=== PATIENT | female | born 1930 | race Hispanic/Latino ===

== ENCOUNTER 2018-01-19 02:08 | Inpatient (IN) | payer MEDICARE ==
[2018-01-19 02:23] VITALS: O2SAT 99
[2018-01-19] MEDS ORDERED: Magnesium Hydroxide Susp 30 ml UD PO PRN (04:05)
[2018-01-19] MEDS ORDERED: Alum-Mag Hydrox-Simethicone Susp (30 mL) PO PRN (04:05)
[2018-01-19] MEDS ORDERED: Bismuth Subsalicylate 262 mg/15 ml Sus (240 ml) PO PRN (04:05)
--- NOTE | 2018-01-19 04:52 | PCM.BM ---
<MyrnaZaireUriel - Last Filed: 01/19/18 04:50> Treatment Plan Problems - Problems identified on initial assessmt Agitated/Aggressive Behavior Date Initiated: 01/19/18 Time Initiated: 04:51 Assessment reference: NA Status: Active Ineffective Impulse Control Date Initiated: 01/19/18 Time Initiated: 04:53 Assessment reference: NA Status: Active Treatment assets and liabiliti Patient Assests: good support system Patient Liabilities: medical problems, imparied memory, language/speech - Milieu Protocol Maintain good personal hygiene: every shift Encourage regular showers, every shift Remind patient to perform daily oral care, every shift Assist patient to perform ADL's Conduct patient checks and document Observation sheet: 1:1 Maintain personal safety: every shift Educate patient to report safety concerns to staff, every shift Monitor environment for contraband/sharps Medication safety: Monitor for expected outcome, potential side effects: every shift, Assess barriers to learning: every shift, Assess readiness for medication education: every shift <Jessica Bond - Last Filed: 01/20/18 08:11> - Diagnosis (1) Dementia with behavioral disturbance Status: Acute Interventions: Medication management, Individual and group therapy, Psychoeducation 01/20/18 08:11 <Estella Juarez - Last Filed: 01/20/18 15:52> Treatment Plan Problems - Problems identified on initial assessmt Agitated/Aggressive Behavior Date Initiated: 01/19/18 Time Initiated: 04:51 Assessment reference: NA Status: Active Ineffective Impulse Control Date Initiated: 01/19/18 Time Initiated: 04:53 Assessment reference: NA Status: Active Problem 1 Date Initiated: 01/19/18 Time Initiated: 04:51 Family Contact Family involvement: Family/SO is involved Family contact: Other (Pt's Ana Rosa mobley is POA) Family contact name: Ana Rosa Bejarano ([phone]) Family contacted how many times per week?: 2 - Outside Agency [facility] involvment: Information-sharing Agency contact number: [phone] - Goals for Treatment Patient goals for treatment: Pt to be encouraged to attend activity and clinical groups 3-5x per week to identify at least 2 contributing factors to increased agitation, irritability, and aggression. Psycho-education to be provided to patient/family regarding benefits of medications and treatment adherence. Pt to be encouraged to participate in group milieu to develop effective coping skills to reduce aggression and reduce psychiatric hospitalizations. Coordinate discharge resource needs by providing referral for psychiatric treatment follow up in the community. Discharge/Continuing Care - Education Needs Education Needs: Family Medication, Family Diagnosis/Disease Process, Family Coping Skills, Family Placement options, Family Community resources, Family Health Practices/Safety, Family Personal Hygiene/Grooming, Family Aftercare Safety Plan - Discharge Discharge Criteria: Tolerates medication w/o severe side effects, Free of agitation, Normal sleep pattern, Ability to care for self, Reduction of target symptoms Discharge to:: Intermediate - Additional Comments 01/20/18 15:51 Pt unable to attend team meeting. Pt observed to be resting. Pt is presently on 1:1 due to safety. Reason for admission reviewed and discussed. Pt's medical and social issues reviewed. Pt's medications discussed. Tx mario reviewed and discussed. SW and attending MD to contact pt's family who is POA for collateral information. SW to continue to follow case. - Treatment Team Participation Discussed with Family/SO: No Was Patient/Family/SO present at Treatment Team Meeting: Yes
[2018-01-19 06:16] LABS: HEMOGLOBIN 13.2 g/dL (12.0-16.0); MEAN CELL VOLUME 88.8 fl (81.0-99.0); MEAN CORPUSCULAR HEMOGLOBIN 29.7 pg (27.0-31.0); MEAN CORPUSCULAR HGB CONC 33.5 g/dL (33.0-37.0); RBC 4.44 Mil/uL (3.80-5.20); RED CELL DISTRIBUTION WIDTH 15.1 % (11.5-14.5); WHITE BLOOD COUNT 12.6 K/uL (4.8-10.8)
[2018-01-19 06:20] LABS: ALB/GLOB RATIO 0.9 (1.0-2.1); ALBUMIN 4.1 g/dL (3.5-5.0); ALT/SGPT 21 U/L (9-52); AST/SGOT 29 U/L (14-36); BLOOD UREA NITROGEN 21 mg/dl (7-17); CALCIUM 10.1 mg/dL (8.4-10.2); GFR NON-AFRICAN AMERICAN > 60; HDL CHOLESTEROL 69 MG/DL (30-70); IRON 64 ug/dL (37-170)
[2018-01-19 06:29] LABS: % IRON SATURATION 22 % (20-55); TOTAL IRON BINDING CAPACITY 299 ug/dL (250-450)
[2018-01-19 06:31] LABS: LDL CHOLESTEROL 63 mg/dL (0-129)
[2018-01-19 06:36] LABS: T4 9.06 ug/dl (5.5-11.0)
[2018-01-19 06:54] LABS: FERRITIN 69.2 ng/Ml (11.1-264.0)
[2018-01-19] MEDS: POLYETHYLENE GLYCOL 3350 17 GM/Dose PACKET PO SCH (08:43)
[2018-01-19] MEDS: Cholecalciferol 1,000 INTLU TAB PO SCH (08:45)
[2018-01-19] MEDS ORDERED: Patient's Own Med (Cholecalciferol (Vitamin D3) [Vitamin D3] 1 TAB) PO SCH (09:00)
[2018-01-19] MEDS ORDERED: Influenza Vaccine 18yr & older 0.5 ML/45 MCG SYR (Inactive don't use) IM ONE (10:00)
[2018-01-19] MEDS ORDERED: Pneumococcal 23-Valent Vaccine IM ONE (10:00)
--- NOTE | 2018-01-19 13:08 | PCM.PSYCH ---
Initial Psychiatric Evaluation - Initial Psychiatric Evaluation Chief Complaint (in patient's own words): pt was transferred from [facility] due non availability of bed pt was transferred from [facility] 2nd to changes in behavior. Patient's Reaction to Hospitalization: pt has POA on chart daughter per records daughter verbally agreeable to play History of Present Illness and Precipitating Events: fci hx of dementia changes in behavior, Current Medications: Active Medications Generic Name Dose Route Start Last Admin Trade Name Freq PRN Reason Stop Dose Admin Acetaminophen 650 mg 01/19/18 04:05 Tylenol 325mg Tab PO Q4 PRN Pain, moderate (4-7) Al Hydrox/Mg Hydrox/Simethicone 30 ml 01/19/18 04:05 Maalox Plus 30 Ml PO Q4 PRN Dyspepsia Bismuth Subsalicylate 524 mg 01/19/18 04:05 Pepto-Bismol PO Q4 PRN Diarrhea Cholecalciferol 2,000 intlu 01/19/18 09:00 01/19/18 08:45 Vitamin D PO 2,000 intlu DAILY TELLY Administration Donepezil HCl 10 mg 01/19/18 22:00 Aricept PO HS TELLY Folic Acid 2 mg 01/19/18 09:00 01/19/18 08:43 Folic Acid PO 2 mg BID TELLY Administration Lisinopril 20 mg 01/19/18 09:00 01/19/18 08:45 Zestril PO 20 mg DAILY TELLY Administration Lorazepam 1 mg 01/19/18 04:04 Ativan IM Q6 PRN Agitation Lorazepam 0.5 mg 01/19/18 04:05 Ativan PO 02/02/18 04:06 HS PRN Insomnia Lorazepam 0.5 mg 01/19/18 04:05 Ativan PO 02/02/18 04:06 Q6 PRN Anixety/Agitation Magnesium Hydroxide 30 ml 01/19/18 04:05 Milk Of Magnesia PO HS PRN Constipation Polyethylene Glycol 17 gm 01/19/18 09:00 01/19/18 08:43 Miralax PO 17 gm DAILY TELLY Administration Past Psychiatric History - Past Psychiatric History Prior Professional Help: [facility], hx dementia, hx of swallowing coins Pertinent Medical Hx (Current Medical&Sleep Prob, Allergies): Allergies Allergy/AdvReac Type Severity Reaction Status Date / Time No Known Allergies Allergy Verified 01/19/18 02:23 Cholecalciferol (Vitamin D3) [Vitamin D3] 1 tab PO DAILY 01/19/18 Divalproex [Depakote DR] 1 tab PO HS 01/19/18 Donepezil [Aricept] 10 mg PO HS 01/19/18 Folic Acid [Folic Acid] 2 mg PO BID 01/19/18 Lisinopril [Zestril] 20 mg PO DAILY 01/19/18 Melatonin/Pyridoxine [Melatonin 5 mg Tablet] 5 mg PO HS 01/19/18 Polyethylene Glycol 3350 [Miralax] 17 g PO DAILY 01/19/18 Quetiapine Fumarate [Seroquel] 25 mg PO DAILY 01/19/18 Quetiapine Fumarate [Seroquel] 50 mg PO HS 01/19/18 Review of Systems - Psychiatric Additional comments: pt had received various prns in [place] for changes in behavior Mental Status Examination - Affect Affect: Constricted, Flat - Motor Activity Motor Activity: Psychomotor Retardation - Reliability in Providing Information Reliability in Providing Information: Poor, due to alteration in thoughts - Speech Additional comments: underproductive - Formal Thought Process Formal Thought Process: Circumstantial Additional comments: loud at times - Cognitive Functions Orientation: Person Sensorium: Drowsy Attention/Concentration: Easily distracted Judgement: Imparied, as evidence by: Other - Risk Risk: Falls, Diminished functioning - Strength & Assets Inventory Additional comments: pt has poa copy to chart DSM 5 DX - DSM 5 DSM 5 Diagnosis: dementia with behavioral disturbance hx of ingestion coins - Recommended/Plan of Treatment Treatment Recommendations and Plan of Treatment: inpt admission per attending vital signs and clinical observation per protocol and per clinical status prn use of antipsychotics should be judiciously used prn use of lower dose lorazepam previous medications can be resumed pt status (assess with hs seroquel possible sedation) obtain ekg check qtc in light of antipsychotics administered access to nepali speaking staff prn discharge planning in progress Projected ELOS: 7 days Prognosis: guarded Discharge Plan and Discharge Criteria: safety - Smoking Cessation Smoking Cessation Initiated: No Reason for not providing: indicated
[2018-01-19 16:11] LABS: FOLATE > 20.0 ng/mL
--- NOTE | 2018-01-19 19:44 | CP.PCM.CON ---
<Piter Andrew - Last Filed: 01/19/18 19:39> History of Present Illness - History of Present Illness History of Present Illness: HPI: 87 y/o woman w/ pmh of HTN and dementia is admitted for AMS. Patient is a [facility] resident. Patient is verbal but is an unreliable historian. Patient has no complaints. Patient denies headaches, dizziness, chest pain, SOB , or abdominal pain. Review of Systems - Review of Systems Systems not reviewed;Unavailable: Dementia - Constitutional Constitutional: absent: Fever, Headache - Cardiovascular Cardiovascular: absent: Chest Pain - Respiratory Respiratory: absent: Cough - Gastrointestinal Gastrointestinal: absent: Abdominal Pain Past Patient History - CARDIAC Hx Hypertension: Yes - NEUROLOGICAL Hx Alzheimer's Disease: Yes Hx Dementia: Yes - MUSCULOSKELETAL/RHEUMATOLOGICAL Hx Falls: Yes - GENITOURINARY/GYNECOLOGICAL Hx Cervical Cancer: Yes (history had radiation) - PSYCHIATRIC Hx Anxiety: Yes Hx Depression: Yes Hx Substance Use: No - SURGICAL HISTORY Other/Comment: abdominal surgery x2-jun and july 2017- pt swallowed 32 coins - ANESTHESIA Hx Anesthesia: Yes Hx Anesthesia Reactions: No Hx Malignant Hyperthermia: No Has any member of the family had a problem w/ anesthesia?: No Meds Allergies/Adverse Reactions: Allergies Allergy/AdvReac Type Severity Reaction Status Date / Time No Known Allergies Allergy Verified 01/19/18 02:23 - Medications Medications: Current Medications Acetaminophen (Tylenol 325mg Tab) 650 mg PO Q4 PRN PRN Reason: Pain, moderate (4-7) Al Hydrox/Mg Hydrox/Simethicone (Maalox Plus 30 Ml) 30 ml PO Q4 PRN PRN Reason: Dyspepsia Bismuth Subsalicylate (Pepto-Bismol) 524 mg PO Q4 PRN PRN Reason: Diarrhea Cholecalciferol (Vitamin D) 2,000 intlu PO DAILY [facility] Last Admin: 01/19/18 08:45 Dose: 2,000 intlu Donepezil HCl (Aricept) 10 mg PO HS TELLY Folic Acid (Folic Acid) 2 mg PO BID [facility] Last Admin: 01/19/18 17:20 Dose: 2 mg Lisinopril (Zestril) 20 mg PO DAILY [facility] Last Admin: 01/19/18 08:45 Dose: 20 mg Lorazepam (Ativan) 1 mg IM Q6 PRN PRN Reason: Agitation Lorazepam (Ativan) 0.5 mg PO HS PRN PRN Reason: Insomnia Stop: 02/02/18 04:06 Lorazepam (Ativan) 0.5 mg PO Q6 PRN PRN Reason: Anixety/Agitation Stop: 02/02/18 04:06 Magnesium Hydroxide (Milk Of Magnesia) 30 ml PO HS PRN PRN Reason: Constipation Polyethylene Glycol (Miralax) 17 gm PO DAILY TELLY Last Admin: 01/19/18 08:43 Dose: 17 gm Physical Exam - Constitutional Appears: Non-toxic, No Acute Distress - Head Exam Head Exam: ATRAUMATIC, NORMAL INSPECTION, NORMOCEPHALIC - Eye Exam Eye Exam: Normal appearance - ENT Exam ENT Exam: Mucous Membranes Moist - Neck Exam Neck exam: Positive for: Full Rom - Respiratory Exam Respiratory Exam: Clear to Auscultation Bilateral, NORMAL BREATHING PATTERN. absent: Decreased Breath Sounds, Rales, Rhonchi, Wheezes, Respiratory Distress - Cardiovascular Exam Cardiovascular Exam: REGULAR RHYTHM, RRR. absent: Tachycardia - GI/Abdominal Exam GI & Abdominal Exam: Normal Bowel Sounds, Soft. absent: Distended, Tenderness - Extremities Exam Extremities exam: Positive for: normal inspection - Neurological Exam Neurological exam: Alert - Skin Skin Exam: Dry, Normal Color, Warm Results - Vital Signs Recent Vital Signs: Last Vital Signs Temp 98.1 F 01/19/18 06:00 Pulse 100 H 01/19/18 08:45 Resp 20 01/19/18 06:00 BP 153/85 H 01/19/18 08:45 Pulse Ox 99 01/19/18 02:18 - Labs Result Diagrams: 01/19/18 05:45 01/19/18 05:45 Labs: Laboratory Results - last 24 hr 01/19/18 01/19/18 01/19/18 05:45 05:45 05:45 WBC 12.6 H RBC 4.44 Hgb 13.2 Hct 39.5 MCV 88.8 MCH 29.7 MCHC 33.5 RDW 15.1 H Plt Count 234 Sodium 137 Potassium 4.1 Chloride 97 L Carbon Dioxide 31 H Anion Gap 13 BUN 21 H Creatinine 0.8 Est GFR ( Amer) > 60 Est GFR (Non-Af Amer) > 60 Random Glucose 130 H Hemoglobin A1c Calcium 10.1 Iron TIBC % Saturation Ferritin 69.2 Total Bilirubin 0.6 AST 29 ALT 21 Alkaline Phosphatase 70 Total Protein 8.5 H Albumin 4.1 Globulin 4.3 H Albumin/Globulin Ratio 0.9 L Triglycerides 77 Cholesterol 170 LDL Cholesterol Direct 63 HDL Cholesterol 69 Vitamin B12 497 Folate > 20.0 Free T4 1.24 Thyroxine (T4) 9.06 TSH 3rd Generation 2.02 RPR 01/19/18 01/19/18 01/19/18 05:45 05:45 05:45 WBC RBC Hgb Hct MCV MCH MCHC RDW Plt Count Sodium Potassium Chloride Carbon Dioxide Anion Gap BUN Creatinine Est GFR ( Amer) Est GFR (Non-Af Amer) Random Glucose Hemoglobin A1c 5.8 Calcium Iron 64 TIBC 299 % Saturation 22 Ferritin Total Bilirubin AST ALT Alkaline Phosphatase Total Protein Albumin Globulin Albumin/Globulin Ratio Triglycerides Cholesterol LDL Cholesterol Direct HDL Cholesterol Vitamin B12 Folate Free T4 Thyroxine (T4) TSH 3rd Generation RPR Nonreactive Assessment & Plan (1) Altered mental status Status: Acute (2) HTN (hypertension) Status: Chronic (3) Dementia Status: Chronic - Assessment and Plan (Free Text) Assessment: 87 y/o woman w/ pmh of HTN and dementia is admitted for AMS Plan: AMS - vital signs stable - from [facility] - management as per psychiatry team Dementia - c/w aricept 10 mg PO HS HTN - c/w lisinopril 20 mg PO daily <Naomi Powell - Last Filed: 01/24/18 08:38> Meds - Medications Medications: Current Medications Acetaminophen (Tylenol 325mg Tab) 650 mg PO Q4 PRN PRN Reason: Pain, moderate (4-7) Al Hydrox/Mg Hydrox/Simethicone (Maalox Plus 30 Ml) 30 ml PO Q4 PRN PRN Reason: Dyspepsia Bismuth Subsalicylate (Pepto-Bismol) 524 mg PO Q4 PRN PRN Reason: Diarrhea Cholecalciferol (Vitamin D) 2,000 intlu PO DAILY TELLY Last Admin: 01/23/18 09:50 Dose: 2,000 intlu Divalproex Sodium (Depakote Sprinkles) 250 mg PO DAILY TELLY Divalproex Sodium (Depakote Sprinkles) 500 mg PO DAILY@1700 TELLY Donepezil HCl (Aricept) 10 mg PO HS TELLY Last Admin: 01/23/18 21:09 Dose: 10 mg Folic Acid (Folic Acid) 2 mg PO BID [facility] Last Admin: 01/23/18 17:36 Dose: 2 mg Lisinopril (Zestril) 20 mg PO DAILY [facility] Last Admin: 01/23/18 09:53 Dose: 20 mg Lorazepam (Ativan) 0.5 mg PO HS PRN PRN Reason: Insomnia Stop: 02/02/18 04:06 Lorazepam (Ativan) 0.5 mg PO Q6 PRN PRN Reason: Anixety/Agitation Stop: 02/02/18 04:06 Last Admin: 01/20/18 22:42 Dose: 0.5 mg Magnesium Hydroxide (Milk Of Magnesia) 30 ml PO HS PRN PRN Reason: Constipation Polyethylene Glycol (Miralax) 17 gm PO DAILY [facility] Last Admin: 01/23/18 09:36 Dose: Not Given Results - Vital Signs Recent Vital Signs: Last Vital Signs Temp 97.1 F L 01/24/18 05:49 Pulse 96 H 01/24/18 05:49 Resp 19 01/24/18 05:49 BP 136/76 01/24/18 05:49 Pulse Ox 99 01/19/18 02:18 - Labs Result Diagrams: 01/21/18 07:42 01/21/18 07:42 Attending/Attestation - Attestation I have personally seen and examined this patient.: Yes I have fully participated in the care of the patient.: Yes I have reviewed all pertinent clinical information: Yes Notes (Text): 01/24/18 08:38 Seen, examined, discussed with resident, agree with findings and plan as above.
[2018-01-20] MEDS: POLYETHYLENE GLYCOL 3350 17 GM/Dose PACKET PO SCH (08:46)
[2018-01-20] MEDS: Cholecalciferol 1,000 INTLU TAB PO SCH (08:47)
--- NOTE | 2018-01-20 09:10 | CARD ---
APPROVED REPORT Date of service: 01/20/2018 EKG Measurement Heart [id number] <Conclusion> Sinus tachycardia with premature supraventricular complexes Cannot rule out Inferior infarct, age undetermined Abnormal ECG
--- NOTE | 2018-01-20 12:03 | PCM.PYCHPN ---
Psychiatric Progress Note - Psychiatric Progress Note Patient seen today, length of contact: Pt evaluated, case discussed w/ team, chart reviewed Patient Chief Complaint: Behavioral disturbances Problems Identified/Issues Discussed: Patient continues to be confused and disorganized. She is not able to answer basic questions. She did not answer her name when asked. She has not been violent or aggressive, but has clear memory deficits w/ poor insight/judgment. Foot Gatherer spoke with patient's POA, daughter Ana Rosa Bejarano ([phone]) and her (who didn't identify his name, despite being asked, he just stated "I'm the son in law."). POA and her were irritated w/ lyric writer that I called and asked their opinion on how the patient is doing. They stated "why are you asking me these questions?" and "I already spoke to someone in the emergency room about my mother." When informed that the lyric writer is trying to collaborate care and learn their opinion because they know their mother, they stated "you shouldn't be asking me these questions, you are the doctor, she has only been there one day." Foot Gatherer again attempted to explain that lyric writer was calling to try to provide good patient care and that it is standard to involve the POA when the patient is unable make decisions for themselves. They were angry stating "how dare you ask me these questions." Foot Gatherer attempted to discuss the patient's medications with the POA/. They did not know which medications the patient was prescribed. Foot Gatherer informed them that as per the record, the patient has been taking Depakote 500 mg PO HS and Seroquel 25 mg PO Daily/50 mg PO HS. They said "I guess that's what she is taking if that's what it says." They also stated "Why are you asking us about medications, you are the doctor, you should know how to prescribe medications." Foot Gatherer asked POA/ , permission to modify the medications as medically and psychiatrically indicated and they agreed. Medication Change: Yes (Restart Depakote) Medical Record Reviewed: Yes Consults ordered or reviewed: Medicine consult Mental Status Examination - Cognitive Function Orientation: Person Memory: Impaired Attention: Poor Concentration: Poor Association: Loose Fund of Knowledge: Poor Decription of patient's judgement and insights: Poor I/J - Mood Mood: Neutral - Affect Affect: Blunted - Speech Speech: Loud - Formal Thought Process Formal Thought Process: Loosening of associations Psychotic Thoughts and Behaviors: No evidence of AH/VH - Suicidal Ideation Suicidal Ideation: No - Homicidal Ideation Homicidal Ideation: No Goal/Treatment Plan - Goal/Treatment Plan Need for Continued Stay: Remain at risks for inpatient hospitalization, Discharge may exacerbated symptoms, Severe functional impairment Progress Toward Problem(s) and Goals/Treatment Plan: Dementia with behavioral disturbances -Restart Depakote -Continue Aricept -Medicine consult -Case discussed w/ POA -Individual and group therapy -Disposition planning Estimated Date of D/C: 01/27/18
--- NOTE | 2018-01-20 16:09 | CT ---
Date of service: 01/20/2018 PROCEDURE: CT HEAD WITHOUT CONTRAST. HISTORY: New onset inability to walk COMPARISON: None. TECHNIQUE: Axial computed tomography images were obtained through the head/brain without intravenous contrast. Radiation dose: Total exam DLP = 782.87 mGy-cm. This CT exam was performed using one or more of the following dose reduction techniques: Automated exposure control, adjustment of the mA and/or kV according to patient size, and/or use of iterative reconstruction technique. FINDINGS: HEMORRHAGE: No intracranial hemorrhage. BRAIN: No mass effect or edema. Age related senescent changes. VENTRICLES: Unremarkable. No hydrocephalus. CALVARIUM: Unremarkable. PARANASAL SINUSES: Unremarkable as visualized. No significant inflammatory changes. MASTOID AIR CELLS: Unremarkable as visualized. No inflammatory changes. OTHER FINDINGS: Soft tissue mass within the scalp adjacent to the posterior right parietal bone. The mass contains elements of fat and other components of soft tissue density. A scalloped appearance to the adjacent posterior high right parietal bone is noted with extension to the dural surface without significant impression upon intracranial contents. IMPRESSION: No acute intracranial abnormalities. Scalp, soft tissue mass with invasion of adjacent high posterior parietal bone on the right. No intracranial component identified.
[2018-01-20] MEDS: Divalproex 125 mg Sprinkle Capsule PO SCH (16:19)
[2018-01-21 08:08] LABS: BASO % 0.3 % (0.0-2.0); EOS % 0.1 % (0.0-4.0); HEMOGLOBIN 13.4 g/dL (12.0-16.0); LYMPH # 3.4 K/uL (1.0-4.3); LYMPH % 26.6 % (20.0-40.0); MEAN CELL VOLUME 89.2 fl (81.0-99.0); MEAN CORPUSCULAR HEMOGLOBIN 29.5 pg (27.0-31.0); MEAN CORPUSCULAR HGB CONC 33.1 g/dL (33.0-37.0); MONO # 1.1 K/uL (0.0-0.8); MONO % 8.8 % (0.0-10.0); NEUT # 8.3 K/uL (1.8-7.0); NEUT % 64.2 % (50.0-75.0); NRBC % 0.1 % (0.0-0.0); RBC 4.55 Mil/uL (3.80-5.20); RED CELL DISTRIBUTION WIDTH 14.6 % (11.5-14.5); WHITE BLOOD COUNT 12.9 K/uL (4.8-10.8)
[2018-01-21 08:15] LABS: ALB/GLOB RATIO 0.9 (1.0-2.1); ALT/SGPT 32 U/L (9-52); AST/SGOT 61 U/L (14-36); BLOOD UREA NITROGEN 26 mg/dl (7-17); CALCIUM 10.2 mg/dL (8.4-10.2); GFR NON-AFRICAN AMERICAN 59
[2018-01-21] MEDS: POLYETHYLENE GLYCOL 3350 17 GM/Dose PACKET PO SCH (09:33)
[2018-01-21] MEDS: Divalproex 125 mg Sprinkle Capsule PO SCH ×3 (09:33→21:24)
[2018-01-21] MEDS: Cholecalciferol 1,000 INTLU TAB PO SCH (09:34)
--- NOTE | 2018-01-21 10:39 | PCM.PYCHPN ---
Psychiatric Progress Note - Psychiatric Progress Note Patient seen today, length of contact: Pt evaluated, case discussed w/ team, chart reviewed Patient Chief Complaint: Behavioral disturbances Problems Identified/Issues Discussed: Patient continues to have behavioral disturbances, episodes of yelling and agitation. She continues to be disorganized w/ poor memory and comprehension of basic commands. She requires 1:1 for safety. Poor insight/judgment due to chronic neurocognitive impairment. Medication Change: Yes (Increase Depakote) Medical Record Reviewed: Yes Consults ordered or reviewed: Medicine consult Mental Status Examination - Cognitive Function Orientation: Person Memory: Impaired Attention: Poor Concentration: Poor Association: Loose Fund of Knowledge: Poor Decription of patient's judgement and insights: Poor I/J - Mood Mood: Neutral - Affect Affect: Blunted - Speech Speech: Loud - Formal Thought Process Formal Thought Process: Loosening of associations Psychotic Thoughts and Behaviors: No evidence of AH/VH - Suicidal Ideation Suicidal Ideation: No - Homicidal Ideation Homicidal Ideation: No Goal/Treatment Plan - Goal/Treatment Plan Need for Continued Stay: Remain at risks for inpatient hospitalization, Discharge may exacerbated symptoms, Severe functional impairment Progress Toward Problem(s) and Goals/Treatment Plan: Dementia with behavioral disturbances -Increase Depakote -Continue Aricept -Medicine consult -Case discussed w/ POA -Individual and group therapy -Disposition planning Estimated Date of D/C: 01/27/18
[2018-01-21 15:01] LABS: SQUAMOUS EPITHIAL < 1 /hpf (0-5); URINE BILIRUBIN NEGATIVE (NEGATIVE); URINE BLOOD MODERATE (NEGATIVE); URINE CLARITY CLEAR (Clear); URINE COLOR YELLOW (YELLOW); URINE GLUCOSE (UA) NEG (Normal); URINE HYALINE CAST 0-2 /hpf (0-2); URINE LEUKOCYTE ESTERASE NEG Leu/uL (Negative); URINE PROTEIN NEGATIVE (NEGATIVE); URINE UROBILINOGEN 0.2-1.0 mg/dL (0.2-1.0)
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
[2018-01-22] MEDS: Divalproex 125 mg Sprinkle Capsule PO SCH ×3 (08:59→17:16)
[2018-01-22] MEDS: POLYETHYLENE GLYCOL 3350 17 GM/Dose PACKET PO SCH (09:00)
[2018-01-22] MEDS: Cholecalciferol 1,000 INTLU TAB PO SCH (09:01)
--- NOTE | 2018-01-22 10:40 | PCM.PYCHPN ---
Psychiatric Progress Note - Psychiatric Progress Note Patient seen today, length of contact: Pt evaluated, case discussed w/ team, chart reviewed Patient Chief Complaint: Behavioral disturbances Problems Identified/Issues Discussed: Patient continues to have behavioral disturbances, w/ episodes of yelling and agitation. She continues to be disorganized w/ poor memory and comprehension of basic commands. She requires 1:1 for safety. Poor insight/judgment due to chronic neurocognitive impairment. Medication Change: No Medical Record Reviewed: Yes Consults ordered or reviewed: Medicine consult, Neurology consult Mental Status Examination - Cognitive Function Orientation: Person Memory: Impaired Attention: Poor Concentration: Poor Association: Loose Fund of Knowledge: Poor Decription of patient's judgement and insights: Poor I/J - Mood Mood: Neutral - Affect Affect: Blunted - Speech Speech: Soft - Formal Thought Process Formal Thought Process: Loosening of associations Psychotic Thoughts and Behaviors: No evidence of AH/VH - Suicidal Ideation Suicidal Ideation: No - Homicidal Ideation Homicidal Ideation: No Goal/Treatment Plan - Goal/Treatment Plan Need for Continued Stay: Remain at risks for inpatient hospitalization, Discharge may exacerbated symptoms, Severe functional impairment Progress Toward Problem(s) and Goals/Treatment Plan: Dementia with behavioral disturbances -Continue Depakote, will f/u depakote level -Continue Aricept -Medicine consult -Case discussed w/ POA -Individual and group therapy -Disposition planning Estimated Date of D/C: 01/27/18
--- NOTE | 2018-01-23 08:14 | PCM.PYCHPN ---
Psychiatric Progress Note - Psychiatric Progress Note Patient seen today, length of contact: Pt evaluated, case discussed w/ team, chart reviewed Patient Chief Complaint: Behavioral disturbances Problems Identified/Issues Discussed: Patient is starting to become calmer, with less mood lability and less episodes of yelling. She continues to be disorganized w/ poor memory and comprehension of basic commands. She requires 1:1 for safety. Poor insight/judgment due to chronic neurocognitive impairment. Medication Change: No Medical Record Reviewed: Yes Consults ordered or reviewed: Medicine consult, Neurology consult Mental Status Examination - Cognitive Function Orientation: Person Memory: Impaired Attention: Poor Concentration: Poor Association: Loose Fund of Knowledge: Poor Decription of patient's judgement and insights: Poor I/J - Mood Mood: Neutral - Affect Affect: Blunted - Speech Speech: Soft - Formal Thought Process Formal Thought Process: Loosening of associations Psychotic Thoughts and Behaviors: No evidence of AH/VH - Suicidal Ideation Suicidal Ideation: No - Homicidal Ideation Homicidal Ideation: No Goal/Treatment Plan - Goal/Treatment Plan Need for Continued Stay: Remain at risks for inpatient hospitalization, Discharge may exacerbated symptoms, Severe functional impairment Progress Toward Problem(s) and Goals/Treatment Plan: Dementia with behavioral disturbances -Continue Depakote, will f/u depakote level -Continue Aricept -Medicine consult -Case discussed w/ POA -Individual and group therapy -Disposition planning Estimated Date of D/C: 01/27/18
[2018-01-23] MEDS: POLYETHYLENE GLYCOL 3350 17 GM/Dose PACKET PO SCH (09:36)
[2018-01-23] MEDS: Divalproex 125 mg Sprinkle Capsule PO SCH ×3 (09:49→17:36)
[2018-01-23] MEDS: Cholecalciferol 1,000 INTLU TAB PO SCH (09:50)
--- NOTE | 2018-01-23 16:07 | CT ---
Date of service: 01/23/2018 PROCEDURE: CT Thoracic Spine without contrast HISTORY: New onset inability to walk COMPARISON: None available. TECHNIQUE: Axial computed tomography images were obtained of the thoracic spine without intravenous contrast. Coronal and sagittal reformatted images were created and reviewed. Radiation dose: Total exam DLP = 1488.67 mGy-cm. This CT exam was performed using one or more of the following dose reduction techniques: Automated exposure control, adjustment of the mA and/or kV according to patient size, and/or use of iterative reconstruction technique. FINDINGS: VERTEBRAE: Unremarkable. No fracture. Normal alignment. Minimal dextroscoliotic curvature of the thoracic spine. DISCS/SPINAL CANAL/NEURAL FORAMINA: Within the limits of the CT technique, no disc herniation seen. No central canal or neural foraminal stenosis.. PARASPINAL SOFT TISSUES: Unremarkable. OTHER FINDINGS: Unremarkable. IMPRESSION: No fracture/dislocation. No evidence of spinal stenosis.
--- NOTE | 2018-01-23 16:19 | CT ---
Date of service: 01/23/2018 PROCEDURE: CT Lumbar Spine without contrast HISTORY: New onset inability to walk COMPARISON: None available. TECHNIQUE: Axial computed tomography images were obtained of the lumbar spine without the use of intravenous contrast. Coronal and sagittal reformatted images were created and reviewed. Radiation dose: Total exam DLP = 1488.67 mGy-cm. This CT exam was performed using one or more of the following dose reduction techniques: Automated exposure control, adjustment of the mA and/or kV according to patient size, and/or use of iterative reconstruction technique. FINDINGS: VERTEBRAE: Unremarkable. No fracture. Normal alignment. DISCS/SPINAL CANAL/NEURAL FORAMINA: L1-2: Unremarkable. L2-3: Unremarkable. L3-4: Unremarkable. L4-5: Calcified disc bulge. No focal herniation. Mild bilateral degenerative facet arthropathy. Moderate central spinal stenosis. Mild bilateral neural foraminal stenosis. L5-S1: Diffuse disc bulge. No focal herniation. Bilateral degenerative facet arthropathy. Moderate to severe central spinal stenosis. Moderate bilateral neural foraminal stenosis. PARASPINAL SOFT TISSUES: Unremarkable. OTHER FINDINGS: None. IMPRESSION: No fracture/dislocation. Moderate central spinal stenosis at L4-5 and moderate to severe central spinal stenosis L5-S1. Mild bilateral neural foraminal stenosis L4-5 and moderate bilateral neural foraminal stenosis L5-S1. No other significant abnormality.
--- NOTE | 2018-01-24 10:00 | PCM.PYCHPN ---
Psychiatric Progress Note - Psychiatric Progress Note Patient seen today, length of contact: Pt evaluated, case discussed w/ team, chart reviewed Patient Chief Complaint: Behavioral disturbances Problems Identified/Issues Discussed: Patient continues to have poor insight/judgment and inability to care for herself due to cognitive impairment. She has periods of mood lability and needs redirection, although she does not follow basic commands. She requires 1: 1 for safety. Medication Change: Yes (Change timing of Depakote ) Medical Record Reviewed: Yes Consults ordered or reviewed: Medicine consult, Neurology consult Mental Status Examination - Cognitive Function Orientation: Person Memory: Impaired Attention: Poor Concentration: Poor Association: Loose Fund of Knowledge: Poor Decription of patient's judgement and insights: Poor I/J - Mood Mood: Neutral - Affect Affect: Blunted - Speech Speech: Soft - Formal Thought Process Formal Thought Process: Loosening of associations Psychotic Thoughts and Behaviors: No evidence of AH/VH - Suicidal Ideation Suicidal Ideation: No - Homicidal Ideation Homicidal Ideation: No Goal/Treatment Plan - Goal/Treatment Plan Need for Continued Stay: Remain at risks for inpatient hospitalization, Discharge may exacerbated symptoms, Severe functional impairment Progress Toward Problem(s) and Goals/Treatment Plan: Dementia with behavioral disturbances -Continue Depakote, will f/u depakote level -Continue Aricept -Medicine consult -Case discussed w/ POA -Individual and group therapy -Disposition planning Estimated Date of D/C: 01/28/18
[2018-01-24] MEDS: Divalproex 125 mg Sprinkle Capsule PO SCH ×2 (10:21→17:02)
[2018-01-24] MEDS: Cholecalciferol 1,000 INTLU TAB PO SCH (10:22)
[2018-01-24] MEDS: POLYETHYLENE GLYCOL 3350 17 GM/Dose PACKET PO SCH (10:22)
[2018-01-25] MEDS: Divalproex 125 mg Sprinkle Capsule PO SCH ×2 (09:10→17:25)
[2018-01-25] MEDS: POLYETHYLENE GLYCOL 3350 17 GM/Dose PACKET PO SCH (09:12)
[2018-01-25] MEDS: Cholecalciferol 1,000 INTLU TAB PO SCH (09:13)
--- NOTE | 2018-01-25 09:54 | PCM.PYCHPN ---
Psychiatric Progress Note - Psychiatric Progress Note Patient seen today, length of contact: Pt evaluated, case discussed w/ team, chart reviewed Patient Chief Complaint: Behavioral disturbances Problems Identified/Issues Discussed: Patient continues to have poor insight/judgment and inability to care for herself due to cognitive impairment. She has periods of mood lability and needs redirection, although she does not follow basic commands. She requires 1: 1 for safety. Patient has poor appetite. Medication Change: No Medical Record Reviewed: Yes Consults ordered or reviewed: Medicine consult, Neurology consult Mental Status Examination - Cognitive Function Orientation: Person Memory: Impaired Attention: Poor Concentration: Poor Association: Loose Fund of Knowledge: Poor Decription of patient's judgement and insights: Poor I/J - Mood Mood: Neutral - Affect Affect: Blunted - Speech Speech: Soft - Formal Thought Process Formal Thought Process: Loosening of associations Psychotic Thoughts and Behaviors: No evidence of AH/VH - Suicidal Ideation Suicidal Ideation: No - Homicidal Ideation Homicidal Ideation: No Goal/Treatment Plan - Goal/Treatment Plan Need for Continued Stay: Remain at risks for inpatient hospitalization, Discharge may exacerbated symptoms, Severe functional impairment Progress Toward Problem(s) and Goals/Treatment Plan: Dementia with behavioral disturbances -Continue Depakote, will f/u depakote level -Continue Aricept -Start Megace -Medicine consult -Case discussed w/ POA -Individual and group therapy -Disposition planning Estimated Date of D/C: 01/28/18
[2018-01-26] MEDS: Divalproex 125 mg Sprinkle Capsule PO SCH ×2 (09:22→17:09)
[2018-01-26] MEDS: Cholecalciferol 1,000 INTLU TAB PO SCH (09:23)
[2018-01-26] MEDS: POLYETHYLENE GLYCOL 3350 17 GM/Dose PACKET PO SCH (09:24)
--- NOTE | 2018-01-26 10:28 | PCM.PYCHPN ---
Psychiatric Progress Note - Psychiatric Progress Note Patient seen today, length of contact: Pt evaluated, case discussed w/ team, chart reviewed Patient Chief Complaint: Behavioral disturbances Problems Identified/Issues Discussed: Patient continues to have periods of yelling, mood lability and has chronic inability to care for self due to her neurocognitive impairment. She requires 1:1 for safety. Patient has poor appetite. Medication Change: No Medical Record Reviewed: Yes Consults ordered or reviewed: Medicine consult, Neurology consult Mental Status Examination - Cognitive Function Orientation: Person Memory: Impaired Attention: Poor Concentration: Poor Association: Loose Fund of Knowledge: Poor Decription of patient's judgement and insights: Poor I/J - Mood Mood: Neutral - Affect Affect: Blunted - Speech Speech: Loud - Formal Thought Process Formal Thought Process: Loosening of associations Psychotic Thoughts and Behaviors: No evidence of AH/VH - Suicidal Ideation Suicidal Ideation: No - Homicidal Ideation Homicidal Ideation: No Goal/Treatment Plan - Goal/Treatment Plan Need for Continued Stay: Remain at risks for inpatient hospitalization, Discharge may exacerbated symptoms, Severe functional impairment Progress Toward Problem(s) and Goals/Treatment Plan: Dementia with behavioral disturbances -Continue Depakote, will f/u depakote level -Continue Aricept -Continue Megace -Medicine consult -Case discussed w/ POA -Individual and group therapy -Disposition planning Estimated Date of D/C: 01/29/18
[2018-01-26] MEDS: Risperidone M tab 0.5MG PO PRN ×2 (10:52→23:00)
[2018-01-27 06:39] LABS: BASO % 0.1 % (0.0-2.0); HEMOGLOBIN 12.7 g/dL (12.0-16.0); LYMPH % 14.3 % (20.0-40.0); MEAN CELL VOLUME 89.6 fl (81.0-99.0); MEAN CORPUSCULAR HEMOGLOBIN 30.1 pg (27.0-31.0); MEAN CORPUSCULAR HGB CONC 33.6 g/dL (33.0-37.0); MEAN PLATELET VOLUME 7.6 fl (7.2-11.7); MONO # 0.4 K/uL (0.0-0.8); MONO % 5.9 % (0.0-10.0); NEUT # 5.5 K/uL (1.8-7.0); NEUT % 79.7 % (50.0-75.0); RBC 4.23 Mil/uL (3.80-5.20); RED CELL DISTRIBUTION WIDTH 14.8 % (11.5-14.5); WHITE BLOOD COUNT 6.9 K/uL (4.8-10.8)
[2018-01-27 07:21] LABS: ALB/GLOB RATIO 0.9 (1.0-2.1); ALBUMIN 3.7 g/dL (3.5-5.0)
[2018-01-27] MEDS ORDERED: Valproic Acid 250 mg/5 ml UD Cup PO SCH (09:00)
--- NOTE | 2018-01-27 11:33 | PCM.PYCHPN ---
Psychiatric Progress Note - Psychiatric Progress Note Patient seen today, length of contact: Pt evaluated, case discussed w/ team, chart reviewed Patient Chief Complaint: Behavioral disturbances Problems Identified/Issues Discussed: Patient continues to have periods of yelling, mood lability and has chronic inability to care for self due to her neurocognitive impairment. She requires 1:1 for safety. Patient has poor appetite and poor PO intake. Medication Change: Yes (Change Depakote to liquid ) Medical Record Reviewed: Yes Consults ordered or reviewed: Medicine consult, Neurology consult Mental Status Examination - Cognitive Function Orientation: Person Memory: Impaired Attention: Poor Concentration: Poor Association: Loose Fund of Knowledge: Poor Decription of patient's judgement and insights: Poor I/J - Mood Mood: Neutral - Affect Affect: Blunted - Speech Speech: Loud - Formal Thought Process Formal Thought Process: Loosening of associations Psychotic Thoughts and Behaviors: No evidence of AH/VH - Suicidal Ideation Suicidal Ideation: No - Homicidal Ideation Homicidal Ideation: No Goal/Treatment Plan - Goal/Treatment Plan Need for Continued Stay: Remain at risks for inpatient hospitalization, Discharge may exacerbated symptoms, Severe functional impairment Progress Toward Problem(s) and Goals/Treatment Plan: Dementia with behavioral disturbances -Will change Depakote to liquid solution to try to increase chance patient will take the medication -Continue Aricept -Continue Megace -Medicine consult -Case discussed w/ POA -Individual and group therapy -Disposition planning Estimated Date of D/C: 01/31/18
[2018-01-27] MEDS ORDERED: Sodium Chloride 0.9% 1,000 ML IV SCH (13:45)
[2018-01-27] MEDS: POLYETHYLENE GLYCOL 3350 17 GM/Dose PACKET PO SCH (16:09)
[2018-01-27] MEDS: Cholecalciferol 1,000 INTLU TAB PO SCH (16:11)
[2018-01-27] MEDS ORDERED: Nitroglycerin 2% Ointment Foilpak UD TOP STA (17:06)
[2018-01-27] MEDS: Sodium Chloride 0.9% 1,000 ML IV SCH (17:51)
[2018-01-27] MEDS: Risperidone M tab 0.5MG PO PRN (20:38)
[2018-01-28 08:27] LABS: ALB/GLOB RATIO 0.8 (1.0-2.1); ALBUMIN 3.7 g/dL (3.5-5.0)
--- NOTE | 2018-01-28 09:29 | PCM.PYCHPN ---
Psychiatric Progress Note - Psychiatric Progress Note Patient seen today, length of contact: Pt evaluated, case discussed w/ team, chart reviewed Patient Chief Complaint: Behavioral disturbances Problems Identified/Issues Discussed: Patient has improved appetite and is eating/drinking more. Patient continues to have periods of yelling, mood lability and has chronic inability to care for self due to her neurocognitive impairment. She requires 1:1 for safety. Medication Change: No Medical Record Reviewed: Yes Consults ordered or reviewed: Medicine consult, Neurology consult Mental Status Examination - Cognitive Function Orientation: Person Memory: Impaired Attention: Poor Concentration: Poor Association: Loose Fund of Knowledge: Poor Decription of patient's judgement and insights: Poor I/J - Mood Mood: Neutral - Affect Affect: Blunted - Speech Speech: Loud - Formal Thought Process Formal Thought Process: Loosening of associations Psychotic Thoughts and Behaviors: No evidence of AH/VH - Suicidal Ideation Suicidal Ideation: No - Homicidal Ideation Homicidal Ideation: No Goal/Treatment Plan - Goal/Treatment Plan Need for Continued Stay: Remain at risks for inpatient hospitalization, Discharge may exacerbated symptoms, Severe functional impairment Progress Toward Problem(s) and Goals/Treatment Plan: Dementia with behavioral disturbances -Continue Depakote -Continue Aricept -Continue Megace -Medicine consult -Case discussed w/ POA; patient will need group home placement when she is psychiatrically stable -Individual and group therapy -Disposition planning Estimated Date of D/C: 01/31/18
[2018-01-28] MEDS: Sodium Chloride 0.9% 1,000 ML IV SCH ×2 (09:44→18:31)
[2018-01-28] MEDS: Valproic Acid 250 mg/5 ml UD Cup PO SCH ×3 (09:45→21:08)
[2018-01-28] MEDS: POLYETHYLENE GLYCOL 3350 17 GM/Dose PACKET PO SCH (09:48)
[2018-01-28] MEDS: Cholecalciferol 1,000 INTLU TAB PO SCH (09:48)
[2018-01-29 07:34] LABS: CALCIUM 9.7 mg/dL (8.4-10.2)
--- NOTE | 2018-01-29 08:37 | PCM.PYCHPN ---
Psychiatric Progress Note - Psychiatric Progress Note Patient seen today, length of contact: Pt evaluated, case discussed w/ team, chart reviewed Patient Chief Complaint: Behavioral disturbances Problems Identified/Issues Discussed: Patient continues to have improved appetite. She is less labile and is approaching her new baseline of functioning. Patient continues to have significant cognitive deficits which limit her ability to care for any of her basic needs/ ADLS. Medication Change: No Medical Record Reviewed: Yes Consults ordered or reviewed: Medicine consult, Neurology consult Mental Status Examination - Cognitive Function Orientation: Person Memory: Impaired Attention: Poor Concentration: Poor Association: Loose Fund of Knowledge: Poor Decription of patient's judgement and insights: Poor I/J - Mood Mood: Neutral - Affect Affect: Constricted - Speech Speech: Appropriate - Formal Thought Process Formal Thought Process: Loosening of associations Psychotic Thoughts and Behaviors: No evidence of AH/VH - Suicidal Ideation Suicidal Ideation: No - Homicidal Ideation Homicidal Ideation: No Goal/Treatment Plan - Goal/Treatment Plan Need for Continued Stay: Severe functional impairment Progress Toward Problem(s) and Goals/Treatment Plan: Dementia with behavioral disturbances -Continue Depakote -Continue Aricept -Continue Megace -Medicine consult -Continue 1:1 for fall precautions -Case discussed w/ POA; patient will need manager long term care placement when she is psychiatrically stable -Individual and group therapy -Disposition planning Estimated Date of D/C: 01/31/18
[2018-01-29] MEDS: Valproic Acid 250 mg/5 ml UD Cup PO SCH ×3 (09:25→17:13)
[2018-01-29] MEDS: Cholecalciferol 1,000 INTLU TAB PO SCH (09:27)
[2018-01-29] MEDS: POLYETHYLENE GLYCOL 3350 17 GM/Dose PACKET PO SCH (09:28)
[2018-01-29] MEDS: Sodium Chloride 0.9% 1,000 ML IV SCH ×2 (09:29→17:12)
--- NOTE | 2018-01-29 10:35 | PCM.BM ---
Treatment Plan Problems - Problems identified on initial assessmt Problem 1 Date Initiated: 01/19/18 Time Initiated: 04:51 Agitated/Aggressive Behavior Date Initiated: 01/19/18 Time Initiated: 04:51 Assessment reference: NA Status: Active Ineffective Impulse Control Date Initiated: 01/19/18 Time Initiated: 04:53 Assessment reference: NA Status: Active Treatment assets and liabiliti Patient Assests: good support system Patient Liabilities: medical problems, imparied memory, language/speech - Milieu Protocol Maintain good personal hygiene: every shift Encourage regular showers, every shift Remind patient to perform daily oral care, every shift Assist patient to perform ADL's Conduct patient checks and document Observation sheet: 1:1 Maintain personal safety: every shift Educate patient to report safety concerns to staff, every shift Monitor environment for contraband/sharps Medication safety: Monitor for expected outcome, potential side effects: every shift, Assess barriers to learning: every shift, Assess readiness for medication education: every shift Milieu Narrative: Dementia with behavioral disturbances -Continue Depakote -Continue Aricept -Continue Megace -Medicine consult -Continue 1:1 for fall precautions -Case discussed w/ POA; patient 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 need oysterman placement when she is psychiatrically stable -Individual and group therapy -Disposition planning Family Contact Family involvement: Family/SO is involved Family contact: Other Family contact name: Ana Rosa RODRIGUEZ on file Family contacted how many times per week?: 2 - Outside Agency [facility] involvment: Information-sharing Agency contact name: [facility] [employer] [facility] contact number: [phone] - Goals for Treatment Patient goals for treatment: Pt to be encouraged to attend activity and clinical groups 3-5x per week to identify at least 2 contributing factors to increased agitation, irritability, and aggression. Psycho-education to be provided to patient/family regarding benefits of medications and treatment adherence. Pt to be encouraged to participate in group milieu to develop effective coping skills to reduce aggression and reduce psychiatric hospitalizations. Coordinate discharge resource needs by providing referral for psychiatric treatment follow up in the community. Discharge/Continuing Care - Education Needs Education Needs: Family Medication, Family Diagnosis/Disease Process, Family Coping Skills, Family Placement options, Family Community resources, Family Health Practices/Safety, Family Personal Hygiene/Grooming, Family Aftercare Safety Plan - Discharge Discharge Criteria: Tolerates medication w/o severe side effects, Free of ag itation, Normal sleep pattern, Ability to care for self, Reduction of target symptoms Discharge to:: [facility] - Additional Comments 01/20/18 15:51 Pt unable to attend team meeting. Pt observed to be resting. Pt is presently on 1:1 due to safety. Reason for admission reviewed and discussed. Pt's medical and social issues reviewed. Pt's medications discussed. Tx mario reviewed and discussed. SW and attending MD to contact pt's family who is POA for collateral information. SW to continue to follow case. - Treatment Team Participation Patient/Family/SO Statement: Dementia with behavioral disturbances -Continue Depakote -Continue Aricept -Continue Megace -Medicine consult -Continue 1:1 for fall precautions -Case discussed w/ POA; patient will need oysterman placement when she is psychiatrically stable -Individual and group therapy -Disposition planning Discussed with Family/SO: No Was Patient/Family/SO present at Treatment Team Meeting: Yes Treatment Plan Review Patient participation: No Family/SO/Caregiver participation: No Additional Comments: LATE ENTRY FROM 01/27/2018: Pt reviewed and discussed in team meeting. Pt unable to attend meeting due to cognitive impairment and current distress. Pt observed to be screaming and yelling. Pt remains on a 1:1 for safety and fall precautions. Pt remains confused and disoriented. Pt requires assistance with ADL's and is total care. Pt is declining physically and unable to return to assisted living facility. Pt's family has agreed to [facility] placement. Pt's medications reviewed and discussed. Pt's tx plan reviewed; pt to remain on 1:1 for safety, continues prescribed medications, SW to follow up with SNF placement, and SW to continue to communicate with pt's family. - Problem Problem 1 Time Initiated: 04:51 Agitated/Aggressive Behavior Date Initiated: 01/19/18 Time Initiated: 04:51 Progress toward outcomes: unchanged (Pt continues to exhibit increased agitation and irritability towards staff members. Pt observed to be screaming and yelling uncontrolably. Pt is difficult to re-direct due to cognitive impairment.) Ineffective Impulse Control Date Initiated: 01/19/18 Time Initiated: 04:53 Progress toward outcomes: unchanged - Discharge / Continuing Care [facility]:: [facility]: Other (Medication Management) Health Needs: Follow up care/test, Doctor appointments, Special equipment, Nutritional, Medications/Rx, Educational, Recreational/Social
--- NOTE | 2018-01-29 21:24 | ED PDOC ---
Psych Transfer Clearance - Clearance Statement Clearance Statement: Reviewed vital signs, lab results and transfer papers. Patient clinically stable for psychiatric admission.
--- NOTE | 2018-01-30 08:32 | PCM.PYCHPN ---
Psychiatric Progress Note - Psychiatric Progress Note Patient seen today, length of contact: Pt evaluated, case discussed w/ team, chart reviewed Patient Chief Complaint: Behavioral disturbances, now improved Problems Identified/Issues Discussed: Patient is at her baseline of functioning. She continues to have significant cognitive deficits which limit her ability to care for herself or take care of any of her basic needs/ADLS. Patient will need custodial placement. Medication Change: No Medical Record Reviewed: Yes Consults ordered or reviewed: Medicine consult, Neurology consult Mental Status Examination - Cognitive Function Orientation: Person Memory: Impaired Attention: Poor Concentration: Poor Association: Loose Fund of Knowledge: Poor Decription of patient's judgement and insights: Poor I/J - Mood Mood: Neutral - Affect Affect: Constricted - Speech Speech: Appropriate - Formal Thought Process Formal Thought Process: Loosening of associations Psychotic Thoughts and Behaviors: No evidence of AH/VH - Suicidal Ideation Suicidal Ideation: No - Homicidal Ideation Homicidal Ideation: No Goal/Treatment Plan - Goal/Treatment Plan Need for Continued Stay: Severe functional impairment Progress Toward Problem(s) and Goals/Treatment Plan: Dementia with behavioral disturbances; patient is at her baseline of functioning and is psychiatrically stable 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 -Continue Depakote -Continue Aricept -Continue Megace -Medicine consult -Continue 1:1 for fall precautions -Case discussed w/ POA -Individual and group therapy -Disposition planning- patient is psychiatrically stable for custodial placement Estimated Date of D/C: 01/31/18
[2018-01-30] MEDS: Cholecalciferol 1,000 INTLU TAB PO SCH (09:01)
[2018-01-30] MEDS: POLYETHYLENE GLYCOL 3350 17 GM/Dose PACKET PO SCH (09:02)
[2018-01-30] MEDS: Valproic Acid 250 mg/5 ml UD Cup PO SCH ×3 (09:02→17:39)
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
[2018-01-30 11:02] VITALS: BMI 21.6
[2018-01-31] MEDS: Risperidone M tab 0.5MG PO PRN ×2 (03:05→20:49)
--- NOTE | 2018-01-31 08:47 | PCM.PYCHPN ---
Psychiatric Progress Note - Psychiatric Progress Note Patient seen today, length of contact: Pt evaluated, case discussed w/ team, chart reviewed Patient Chief Complaint: Behavioral disturbances, now improved Problems Identified/Issues Discussed: No new events. Patient is at her baseline of functioning. She continues to have significant cognitive deficits which limit her ability to care for herself or take care of any of her basic needs/ADLS. Patient will need penitentiary placement. Medication Change: No Medical Record Reviewed: Yes Consults ordered or reviewed: Medicine consult, Neurology consult Mental Status Examination - Cognitive Function Orientation: Person Memory: Impaired Attention: Poor Concentration: Poor Association: Loose Fund of Knowledge: Poor Decription of patient's judgement and insights: Poor I/J - Mood Mood: Neutral - Affect Affect: Constricted - Speech Speech: Slurred - Formal Thought Process Formal Thought Process: Loosening of associations Psychotic Thoughts and Behaviors: No evidence of AH/VH - Suicidal Ideation Suicidal Ideation: No - Homicidal Ideation Homicidal Ideation: No Goal/Treatment Plan - Goal/Treatment Plan Need for Continued Stay: Severe functional impairment Progress Toward Problem(s) and Goals/Treatment Plan: Dementia with behavioral disturbances; patient is at her baseline of functioning and is psychiatrically stable for penitentiary placement. 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
[2018-01-31] MEDS: Valproic Acid 250 mg/5 ml UD Cup PO SCH ×3 (09:40→21:15)
[2018-01-31] MEDS: POLYETHYLENE GLYCOL 3350 17 GM/Dose PACKET PO SCH (09:41)
[2018-01-31] MEDS: Cholecalciferol 1,000 INTLU TAB PO SCH (09:42)
--- NOTE | 2018-01-31 11:09 | CP.PCM.PN ---
Subjective - Date & Time of Evaluation Date of Evaluation: 01/31/18 Time of Evaluation: 11:09 - Subjective Subjective: clinically patient awake and consciousness not in acute distress Objective - Vital Signs/Intake and Output Vital Signs (last 24 hours): Temp Pulse Resp BP Pulse Ox 98.1 F 90 18 153/89 H 99 01/31/18 06:00 01/31/18 09:41 01/31/18 06:00 01/31/18 09:41 01/19/18 02:18 - Medications Medications: Current Medications Acetaminophen (Tylenol 325mg Tab) 650 mg PO Q4 PRN PRN Reason: Pain, moderate (4-7) Last Admin: 01/30/18 23:24 Dose: 650 mg Al Hydrox/Mg Hydrox/Simethicone (Maalox Plus 30 Ml) 30 ml PO Q4 PRN PRN Reason: Dyspepsia Amlodipine Besylate (Norvasc) 10 mg PO DAILY [facility] Last Admin: 01/31/18 09:41 Dose: 10 mg Bismuth Subsalicylate (Pepto-Bismol) 524 mg PO Q4 PRN PRN Reason: Diarrhea Cholecalciferol (Vitamin D) 2,000 intlu PO DAILY [facility] Last Admin: 01/31/18 09:42 Dose: 2,000 intlu Donepezil HCl (Aricept) 10 mg PO HS [facility] Last Admin: 01/30/18 21:19 Dose: 10 mg Folic Acid (Folic Acid) 2 mg PO BID [facility] Last Admin: 01/31/18 09:42 Dose: 2 mg Lorazepam (Ativan) 0.5 mg PO HS PRN PRN Reason: Insomnia Stop: 02/02/18 04:06 Lorazepam (Ativan) 0.5 mg PO Q6 PRN PRN Reason: Anixety/Agitation Stop: 02/02/18 04:06 Last Admin: 01/29/18 00:00 Dose: 0.5 mg Magnesium Hydroxide (Milk Of Magnesia) 30 ml PO HS PRN PRN Reason: Constipation Megestrol Acetate (Megace) 20 mg PO DAILY [facility] Last Admin: 01/31/18 09:42 Dose: 20 mg Polyethylene Glycol (Miralax) 17 gm PO DAILY [facility] Last Admin: 01/31/18 09:41 Dose: Not Given Risperidone (Risperdal M-Tab) 0.5 mg PO Q12 PRN PRN Reason: Agitation Last Admin: 01/31/18 03:05 Dose: 0.5 mg Valproate Sodium (Depakene Oral Soln) 250 mg PO BIDHS [facility] - Labs Labs: 01/27/18 05:45 01/29/18 06:30 - Constitutional Appears: No Acute Distress - Eye Exam Eye Exam: Conjunctival injection - ENT Exam ENT Exam: Mucous Membranes Dry - Neck Exam Neck Exam: absent: Lymphadenopathy - Respiratory Exam Respiratory Exam: absent: Chest Wall Tenderness, NORMAL BREATHING PATTERN - Cardiovascular Exam Cardiovascular Exam: absent: Gallop, JVD, Rubs - GI/Abdominal Exam GI & Abdominal Exam: Soft, Normal Bowel Sounds - Extremities Exam Extremities Exam: absent: Calf Tenderness - Back Exam Back Exam: absent: CVA tenderness (L), CVA tenderness (R) - Neurological Exam Neurological Exam: Alert - Psychiatric Exam Psychiatric exam: Anxious - Skin Skin Exam: absent: Cyanosis Assessment and Plan (1) CRISTINE (acute kidney injury) Assessment & Plan: acute kidney injury continued to improve last serum creatinine 1.4 likely related to some element of dehydration and use of Paulo. Hypertension In addition to the diagnosis from the psych unit The plan Patient off Paulo blood pressure acceptable this morning however if continue to rise we will add additional medication such as a clonidine Patient is on Norvasc . disproportion high B UN too creatinine perhaps patient need more fluid by mouth Status: Acute (2) Altered mental status Status: Acute (3) Dementia with behavioral disturbance Status: Acute (4) HTN (hypertension) Status: Chronic
[2018-02-01] MEDS ORDERED: Metoprolol Succinate 50 mg XL Tab PO SCH (09:00)
[2018-02-01] MEDS: Cholecalciferol 1,000 INTLU TAB PO SCH (09:20)
[2018-02-01] MEDS: Valproic Acid 250 mg/5 ml UD Cup PO SCH ×3 (09:20→21:21)
[2018-02-01] MEDS: POLYETHYLENE GLYCOL 3350 17 GM/Dose PACKET PO SCH (09:24)
--- NOTE | 2018-02-01 10:22 | PCM.PYCHPN ---
Psychiatric Progress Note - Psychiatric Progress Note Patient seen today, length of contact: Pt evaluated, case discussed w/ team, chart reviewed Patient Chief Complaint: pt has remained with cognitive deficits and intermittently agitated and can be redirected.no side effects. Medication Change: No Medical Record Reviewed: Yes Mental Status Examination - Cognitive Function Orientation: Person Memory: Impaired Attention: Poor Concentration: Poor Association: Loose Fund of Knowledge: Poor - Mood Mood: Neutral - Affect Affect: Constricted - Speech Speech: Slurred - Formal Thought Process Formal Thought Process: Loosening of associations - Suicidal Ideation Suicidal Ideation: No - Homicidal Ideation Homicidal Ideation: No Goal/Treatment Plan - Goal/Treatment Plan Need for Continued Stay: Severe functional impairment Progress Toward Problem(s) and Goals/Treatment Plan: will continue to stabilize the pt with meds . pt is waiting for NH placement . Estimated Date of D/C: 02/07/18
[2018-02-01 11:05] LABS: CALCIUM 9.6 mg/dL (8.4-10.2)
--- NOTE | 2018-02-01 15:15 | CP.PCM.PN ---
Subjective - Date & Time of Evaluation Date of Evaluation: 02/01/18 Time of Evaluation: 10:00 - Subjective Subjective: Nephrology Consultation Note Assessment: Stable Acute Kidney Injury (N17.9) likely due to pre-renal state improved HTN severe dementia hyponatremia Vit D Insff Plan No acute need for renal replacement therapy at this time. . Hypertension control with meds as ordered. Maintain hemodynamics stable. Avoid hypotension. Patient not on ACEI/ARB due to recent CRISTINE. added toprol XL 25 as HR also elevated Monitor Input/Output, daily weights and renal function with basic metabolic panel Check urine analysis, urine Na and Osmol Dose meds/antibiotics for improved GFR. Glycemic control Further work up for as per primary team Thanks for allowing me to participate in care of your patient. Will follow patient with you. Please call if any Qs Dr Leonel Stewart Office: [phone] Subjective: Noted events overnight. Patients unable to provide any ROS. has advanced dementia Physical Examination: General Appearance: in no acute respiratory distress Vitals reviewed and noted as below Head; Atraumatic, normocephalic ENT: no ulcers no thrush. Tongue is midline. Oropharynx: no rash or ulcers. EYES: Pupils are equal, round and reactive to light accommodation. Eye muscles and extraocular movement intact. Sclera is anicteric. Neck; supple no lymphadenopathy, no thyromegaly or bruit Lungs: Normal respiratory rate/effort. Breath sounds bilateral equal and clear Heart: Normal rate. s1s2 normal. No rub or gallop. Extremities: no edema. No varicose veins Neurological: Patient is severly demented Skin: Warm and dry. Normal turgor. No rash. Palpitation: Normal elasticity for age Abdomen: Abdomen is soft. Bowel sounds +. There is no abdominal tenderness, no guarding/rigidity no organomegaly Psych: unable MSK: no joint tenderness or swelling. Digits and nails normal, no deformity : kidney or bladder not palpable Labs/imaging reviewed. Past medical history, past surgical history, family history, social history, allergy reviewed and noted as below Family hx: no hx of CKD. Rest non-contributory Objective - Vital Signs/Intake and Output Vital Signs (last 24 hours): Temp Pulse Resp BP Pulse Ox 98.6 F 102 H 18 105/68 99 01/31/18 16:24 02/01/18 12:18 01/31/18 16:24 02/01/18 12:18 01/19/18 02:18 - Medications Medications: Current Medications Acetaminophen (Tylenol 325mg Tab) 650 mg PO Q4 PRN PRN Reason: Pain, moderate (4-7) Last Admin: 01/30/18 23:24 Dose: 650 mg Al Hydrox/Mg Hydrox/Simethicone (Maalox Plus 30 Ml) 30 ml PO Q4 PRN PRN Reason: Dyspepsia Amlodipine Besylate (Norvasc) 10 mg PO DAILY [facility] Last Admin: 02/01/18 09:24 Dose: 10 mg Bismuth Subsalicylate (Pepto-Bismol) 524 mg PO Q4 PRN PRN Reason: Diarrhea Cholecalciferol (Vitamin D) 2,000 intlu PO DAILY [facility] Last Admin: 02/01/18 09:20 Dose: 2,000 intlu Donepezil HCl (Aricept) 10 mg PO HS [facility] Last Admin: 01/31/18 21:15 Dose: 10 mg Folic Acid (Folic Acid) 2 mg PO BID [facility] Last Admin: 02/01/18 09:21 Dose: 2 mg Lorazepam (Ativan) 0.5 mg PO HS PRN PRN Reason: Insomnia Stop: 02/02/18 04:06 Lorazepam (Ativan) 0.5 mg PO Q6 PRN PRN Reason: Anixety/Agitation Stop: 02/02/18 04:06 Last Admin: 01/31/18 16:56 Dose: 0.5 mg Magnesium Hydroxide (Milk Of Magnesia) 30 ml PO HS PRN PRN Reason: Constipation Megestrol Acetate (Megace) 20 mg PO DAILY [facility] Last Admin: 02/01/18 09:22 Dose: 20 mg Metoprolol Succinate (Toprol Xl) 25 mg PO DAILY [facility] Polyethylene Glycol (Miralax) 17 gm PO DAILY [facility] Last Admin: 02/01/18 09:24 Dose: Not Given Risperidone (Risperdal M-Tab) 0.5 mg PO Q12 PRN PRN Reason: Agitation Last Admin: 01/31/18 20:49 Dose: 0.5 mg [facility] Last Admin: 02/01/18 09:20 Dose: 250 mg - Labs Labs: 01/27/18 05:45 02/01/18 09:21
[2018-02-01] MEDS: Risperidone M tab 0.5MG PO PRN (21:22)
[2018-02-02 08:04] LABS: CALCIUM 9.6 mg/dL (8.4-10.2)
[2018-02-02 08:45] LABS: GRANULAR CAST 72 /lpf (0-1); URINE AMORPHOUS SEDIMENT MODERATE /ul (<OCC); URINE BACTERIA MOD (<OCC); URINE BILIRUBIN NEGATIVE (NEGATIVE); URINE BLOOD LARGE (NEGATIVE); URINE CLARITY TURBID (Clear); URINE COLOR YELLOW (YELLOW); URINE GLUCOSE (UA) NEG (Normal); URINE LEUKOCYTE ESTERASE LARGE Leu/uL (Negative); URINE PROTEIN 30 mg/dL (NEGATIVE); URINE UROBILINOGEN 0.2-1.0 mg/dL (0.2-1.0); WBC CLUMPS MANY /hpf
[2018-02-02 08:49] LABS: RENAL EPITHELIAL 3 /hpf (0-3); SQUAMOUS EPITHIAL 10 /hpf (0-5)
[2018-02-02] MEDS: Cholecalciferol 1,000 INTLU TAB PO SCH (09:47)
[2018-02-02] MEDS: Valproic Acid 250 mg/5 ml UD Cup PO SCH ×3 (09:47→21:33)
[2018-02-02] MEDS: Metoprolol Succinate 25 mg XL Tab PO SCH (09:48)
[2018-02-02] MEDS: POLYETHYLENE GLYCOL 3350 17 GM/Dose PACKET PO SCH (09:49)
--- NOTE | 2018-02-02 12:00 | CP.PCM.PN ---
Subjective - Date & Time of Evaluation Date of Evaluation: 02/02/18 Time of Evaluation: 11:58 - Subjective Subjective: Nephrology Consultation Note Assessment: Stable Acute Kidney Injury (N17.9) likely due to pre-renal state improved HTN severe dementia hyponatremia due to psychogenic polydipsia Vit D Insufficiency UTI Plan No acute need for renal replacement therapy at this time. . Hypertension control with meds as ordered. Maintain hemodynamics stable. Avoid hypotension. Patient not on ACEI/ARB due to recent CRISTINE. added toprol XL 25 as HR also elevated Monitor Input/Output, daily weights and renal function with basic metabolic panel started macrobid for 5 days pending urine c/s oral fluid restriction to [id number] mL/day in place Dose meds/antibiotics for improved GFR. Glycemic control Further work up for as per primary team Thanks for allowing me to participate in care of your patient. Will follow patient with you. Please call if any Qs. Dr Leonel Stewart Office: [phone] Subjective: Noted events overnight. Patients unable to provide any ROS. has advanced dementia Physical Examination: General Appearance: in no acute respiratory distress Vitals reviewed and noted as below Head; Atraumatic, normocephalic ENT: no ulcers no thrush. Tongue is midline. Oropharynx: no rash or ulcers. EYES: Pupils are equal, round and reactive to light accommodation. Eye muscles and extraocular movement intact. Sclera is anicteric. Neck; supple no lymphadenopathy, no thyromegaly or bruit Lungs: Normal respiratory rate/effort. Breath sounds bilateral equal and clear Heart: Normal rate. s1s2 normal. No rub or gallop. Extremities: no edema. No varicose veins Neurological: Patient is severly demented Skin: Warm and dry. Normal turgor. No rash. Palpitation: Normal elasticity for age Abdomen: Abdomen is soft. Bowel sounds +. There is no abdominal tenderness, no guarding/rigidity no organomegaly Psych: unable MSK: no joint tenderness or swelling. Digits and nails normal, no deformity : kidney or bladder not palpable Labs/imaging reviewed. Past medical history, past surgical history, family history, social history, allergy reviewed and noted as below Family hx: no hx of CKD. Rest non-contributory Objective - Vital Signs/Intake and Output Vital Signs (last 24 hours): Temp Pulse Resp BP Pulse Ox 97.2 F L 93 H 17 145/91 H 99 02/02/18 06:00 02/02/18 09:48 02/02/18 06:00 02/02/18 09:48 01/19/18 02:18 - Medications Medications: Current Medications Acetaminophen (Tylenol 325mg Tab) 650 mg PO Q4 PRN PRN Reason: Pain, moderate (4-7) Last Admin: 02/01/18 23:09 Dose: 650 mg Al Hydrox/Mg Hydrox/Simethicone (Maalox Plus 30 Ml) 30 ml PO Q4 PRN PRN Reason: Dyspepsia Amlodipine Besylate (Norvasc) 10 mg PO DAILY [facility] Last Admin: 02/02/18 09:48 Dose: 10 mg Bismuth Subsalicylate (Pepto-Bismol) 524 mg PO Q4 PRN PRN Reason: Diarrhea Cholecalciferol (Vitamin D) 2,000 intlu PO DAILY [facility] Last Admin: 02/02/18 09:47 Dose: 2,000 intlu Donepezil HCl (Aricept) 10 mg PO [facility] Last Admin: 02/01/18 21:21 Dose: 10 mg Folic Acid (Folic Acid) 2 mg PO BID [facility] Last Admin: 02/02/18 09:47 Dose: 2 mg Magnesium Hydroxide (Milk Of Magnesia) 30 ml PO HS PRN PRN Reason: Constipation Megestrol Acetate (Megace) 20 mg PO DAILY [facility] Last Admin: 02/02/18 09:48 Dose: 20 mg Metoprolol Succinate (Toprol Xl) 25 mg PO DAILY [facility] Last Admin: 02/02/18 09:48 Dose: 25 mg Nitrofurantoin Macrocrystals (Macrobid) 100 mg PO BID [facility]; Protocol Stop: 02/07/18 10:31 Polyethylene Glycol (Miralax) 17 gm PO DAILY [facility] Last Admin: 02/02/18 09:49 Dose: Not Given Risperidone (Risperdal M-Tab) 0.5 mg PO Q12 PRN PRN Reason: Agitation Last Admin: 02/01/18 21:22 Dose: 0.5 mg [facility] Last Admin: 02/02/18 09:47 Dose: 250 mg - Labs Labs: 01/27/18 05:45 02/02/18 07:19
--- NOTE | 2018-02-02 14:50 | PCM.PYCHPN ---
Psychiatric Progress Note - Psychiatric Progress Note Patient seen today, length of contact: Pt evaluated, case discussed w/ team, chart reviewed Patient Chief Complaint: pt has been more agitated today screaming mostly in night time remained with cognitive deficits and disorientation and can be redirected.no side effects.VPA level is 31 . Medication Change: Yes (increase valproic acid) Medical Record Reviewed: Yes Mental Status Examination - Cognitive Function Orientation: Person Memory: Impaired Attention: Poor Concentration: Poor Association: Loose Fund of Knowledge: Poor - Mood Mood: Neutral - Affect Affect: Constricted - Speech Speech: Slurred - Formal Thought Process Formal Thought Process: Loosening of associations - Suicidal Ideation Suicidal Ideation: No - Homicidal Ideation Homicidal Ideation: No Goal/Treatment Plan - Goal/Treatment Plan Need for Continued Stay: Severe functional impairment Progress Toward Problem(s) and Goals/Treatment Plan: will continue to stabilize the pt with meds and increase VPA to 250 mg bid and 375 mg hs pt is waiting for NH placement . Estimated Date of D/C: 02/07/18
[2018-02-02] MEDS: Risperidone M tab 0.5MG PO PRN (21:35)
[2018-02-02] MEDS ORDERED: Valproic Acid 250 mg/5 ml UD Cup PO SCH (22:00)
[2018-02-03] MEDS: Valproic Acid 250 mg/5 ml UD Cup PO SCH ×3 (08:15→21:52)
[2018-02-03] MEDS: Cholecalciferol 1,000 INTLU TAB PO SCH (08:17)
[2018-02-03] MEDS: Metoprolol Succinate 25 mg XL Tab PO SCH (08:18)
[2018-02-03] MEDS: POLYETHYLENE GLYCOL 3350 17 GM/Dose PACKET PO SCH (08:19)
--- NOTE | 2018-02-03 08:33 | PCM.PYCHPN ---
Psychiatric Progress Note - Psychiatric Progress Note Patient seen today, length of contact: Pt evaluated, case discussed w/ team, chart reviewed Patient Chief Complaint: Behavioral disturbances, now improved Problems Identified/Issues Discussed: No new events over the weekend. Patient is at her baseline of functioning and no longer requires 1:1 observation. Patient will need snf placement. Medication Change: No Medical Record Reviewed: Yes Consults ordered or reviewed: Medicine consult, Neurology consult Mental Status Examination - Cognitive Function Orientation: Person Memory: Impaired Attention: Poor Concentration: Poor Association: Loose Fund of Knowledge: Poor Decription of patient's judgement and insights: Chronic poor I/J due to dementia - Mood Mood: Neutral - Affect Affect: Broad - Speech Speech: Soft - Formal Thought Process Formal Thought Process: Loosening of associations Psychotic Thoughts and Behaviors: NO AH/VH - Suicidal Ideation Suicidal Ideation: No - Homicidal Ideation Homicidal Ideation: No Goal/Treatment Plan - Goal/Treatment Plan Need for Continued Stay: Severe functional impairment Progress Toward Problem(s) and Goals/Treatment Plan: Dementia with behavioral disturbances; patient is at her baseline of functioning and is 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 -Continue Depakote -Continue Aricept -Continue Megace -Medicine consult -No 1:1 indicated at this time -Case discussed w/ POA -Individual and group therapy -Disposition planning- patient is psychiatrically stable for snf placement Estimated Date of D/C: 02/07/18
--- NOTE | 2018-02-03 10:31 | CP.PCM.PN ---
Subjective - Date & Time of Evaluation Date of Evaluation: 02/03/18 Time of Evaluation: 10:30 - Subjective Subjective: no significant changes Patient awake but she has dementia Vital sign noted to be stable Objective - Vital Signs/Intake and Output Vital Signs (last 24 hours): Temp Pulse Resp BP Pulse Ox 97 F L 91 H 20 130/81 99 02/03/18 06:00 02/03/18 08:18 02/03/18 06:00 02/03/18 08:18 01/19/18 02:18 - Medications Medications: Current Medications Acetaminophen (Tylenol 325mg Tab) 650 mg PO Q4 PRN PRN Reason: Pain, moderate (4-7) Last Admin: 02/02/18 21:37 Dose: 650 mg Al Hydrox/Mg Hydrox/Simethicone (Maalox Plus 30 Ml) 30 ml PO Q4 PRN PRN Reason: Dyspepsia Amlodipine Besylate (Norvasc) 10 mg PO DAILY [facility] Last Admin: 02/03/18 08:18 Dose: 10 mg Bismuth Subsalicylate (Pepto-Bismol) 524 mg PO Q4 PRN PRN Reason: Diarrhea Cholecalciferol (Vitamin D) 2,000 intlu PO DAILY [facility] Last Admin: 02/03/18 08:17 Dose: 2,000 intlu Donepezil HCl (Aricept) 10 mg PO HS [facility] Last Admin: 02/02/18 21:35 Dose: 10 mg Folic Acid (Folic Acid) 2 mg PO BID [facility] Last Admin: 02/03/18 08:16 Dose: 2 mg Magnesium Hydroxide (Milk Of Magnesia) 30 ml PO HS PRN PRN Reason: Constipation Megestrol Acetate (Megace) 20 mg PO DAILY [facility] Last Admin: 02/03/18 08:17 Dose: 20 mg Metoprolol Succinate (Toprol Xl) 25 mg PO DAILY [facility] Last Admin: 02/03/18 08:18 Dose: 25 mg Nitrofurantoin Macrocrystals (Macrobid) 100 mg PO BID [facility]; Protocol Stop: 02/07/18 10:31 Last Admin: 02/03/18 08:18 Dose: 100 mg Polyethylene Glycol (Miralax) 17 gm PO DAILY [facility] Last Admin: 02/03/18 08:19 Dose: Not Given Risperidone (Risperdal M-Tab) 0.5 mg PO Q12 PRN PRN Reason: Agitation Last Admin: 02/02/18 21:35 Dose: 0.5 mg Valproate Sodium (Depakene Oral Soln) 250 mg PO BID [facility] Last Admin: 02/03/18 08:15 Dose: 250 mg Valproate Sodium (Depakene Oral Soln) 375 mg PO HS [facility] Last Admin: 02/02/18 21:33 Dose: 375 mg - Labs Labs: 01/27/18 05:45 02/02/18 07:19 - Constitutional Appears: No Acute Distress - Eye Exam Eye Exam: Conjunctival injection - ENT Exam ENT Exam: Mucous Membranes Moist - Neck Exam Neck Exam: absent: Lymphadenopathy - Respiratory Exam Respiratory Exam: NORMAL BREATHING PATTERN. absent: Chest Wall Tenderness - Cardiovascular Exam Cardiovascular Exam: absent: Gallop, JVD, Rubs - GI/Abdominal Exam GI & Abdominal Exam: Soft, Normal Bowel Sounds - Extremities Exam Extremities Exam: absent: Calf Tenderness - Back Exam Back Exam: absent: CVA tenderness (L), CVA tenderness (R) - Neurological Exam Neurological Exam: Altered - Skin Skin Exam: absent: Cyanosis Assessment and Plan (1) CRISTINE (acute kidney injury) Assessment & Plan: patient appeared to be recovering from acute kidney injury the last serum creatinine 1.1 Hyponatremia improving the latest serum sodium 133 Dementia Hypertension The plan Blood pressure appeared to be controlled on the current medications As per primary team and the psychiatry Status: Acute (2) Altered mental status Status: Acute (3) Dementia with behavioral disturbance Status: Acute (4) HTN (hypertension) Status: Chronic
--- NOTE | 2018-02-03 15:12 | PCM.BM ---
Treatment Plan Problems - Problems identified on initial assessmt Problem 1 Date Initiated: 01/19/18 Time Initiated: 04:51 Agitated/Aggressive Behavior Date Initiated: 01/19/18 Time Initiated: 04:51 Assessment reference: NA Status: Active Ineffective Impulse Control Date Initiated: 01/19/18 Time Initiated: 04:53 Assessment reference: NA Status: Active Treatment assets and liabiliti Patient Assests: good support system Patient Liabilities: medical problems, imparied memory, language/speech - Milieu Protocol Maintain good personal hygiene: every shift Encourage regular showers, every shift Remind patient to perform daily oral care, every shift Assist patient to perform ADL's Conduct patient checks and document Observation sheet: 1:1 Maintain personal safety: every shift Educate patient to report safety concerns to staff, every shift Monitor environment for contraband/sharps Medication safety: Monitor for expected outcome, potential side effects: every shift, Assess barriers to learning: every shift, Assess readiness for medication education: every shift Milieu Narrative: Dementia with behavioral disturbances; patient is at her baseline of functioning and is 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 -Continue Depakote -Continue Aricept -Continue Megace -Medicine consult -No 1:1 indicated at this time -Case discussed w/ POA -Individual and group therapy -Disposition planning- patient is psychiatrically stable for roasterman placement Family Contact Family involvement: Family/SO is involved Family contact: Other Family contact name: Ana Rosa RODRIGUEZ on file Family contacted how many times per week?: 2 - Outside Agency [facility] involvment: Information-sharing Agency contact name: [facility] [employer] Agency contact number: [phone] - Goals for Treatment Patient goals for treatment: Pt to be encouraged to attend activity and clinical groups 3-5x per week to identify at least 2 contributing factors to increased agitation, irritability, and aggression. Psycho-education to be provided to patient/family regarding benefits of medications and treatment adherence. Pt to be encouraged to participate in group milieu to develop effective coping skills to reduce aggression and reduce psychiatric hospitalizations. Coordinate discharge resource needs by providing referral for psychiatric treatment follow up in the community. Discharge/Continuing Care - Education Needs Education Needs: Family Medication, Family Diagnosis/Disease Process, Family Coping Skills, Family Placement options, Family Community resources, Family Health Practices/Safety, Family Personal Hygiene/Grooming, Family Aftercare Safety Plan - Discharge Discharge Criteria: Tolerates medication w/o severe side effects, Free of agitation, Normal sleep pattern, Ability to care for self, Reduction of target symptoms Discharge to:: Detention Facility - Additional Comments 01/20/18 15:51 Pt unable to attend team meeting. Pt observed to be resting. Pt is presently on 1:1 due to safety. Reason for admission reviewed and discussed. Pt's medical and social issues reviewed. Pt's medications discussed. Tx mario reviewed and discussed. SW and attending MD to contact pt's family who is POA for collateral information. SW to continue to follow case. - Treatment Team Participation Patient/Family/SO Statement: Dementia with behavioral disturbances; patient is at her baseline of functioning and is psychiatrically stable for long-term placement. -Continue Depakote -Continue Aricept -Continue Megace -Medicine consult -No 1:1 indicated at this time -Case discussed w/ POA -Individual and group therapy -Disposition planning- patient is psychiatrically stable for long-term placement Discussed with Family/SO: No Was Patient/Family/SO present at Treatment Team Meeting: Yes Treatment Plan Review Patient participation: No Family/SO/Caregiver participation: No Additional Comments: Pt discussed in team meeting. Pt unable to attend due to severe cognitive impairment and physical decline. Pt is less irritable and agitated; however, continues to exhibit periods of yelling and screaming. Pt's 1:1 for safety precautions was discontinued and pt was moved to a room closer to the nurse station. Pt's appetite remains poor. Pt's sleep is poor. Pt is compliant with medications, but crushed in food. Pt is clinically [facility]. Pt will be admitted [facility] with transition to LTC placement. Pt is private pay for LTC and family will be contacted to discuss finances. Tx plan reviewed. SW will continue to follow case and contact accepting facility for status of transfer. - Problem Problem 1 Time Initiated: : Agitated/Aggressive Behavior Date Initiated: 01/19/18 Time Initiated: 04:51 Progress toward outcomes: unchanged (Pt continues to exhibit periods of agitation and irratibility. Pt has periods of screaming and yelling. Pt is difficult to re-direct due to cognitive impairment.) Ineffective Impulse Control Date Initiated: 01/19/18 Time Initiated: 04:53 Progress toward outcomes: unchanged - Discharge / Continuing Care Discharge to:: Detention Facility (Pt is clinically [facility] with transition to LTC. ) Behavioral Health Services: Other (Medication management) Health Needs: Follow up care/test, Doctor appointments, Special equipment, Nutritional, Medications/Rx, Educational, Recreational/Social
--- NOTE | 2018-02-04 08:02 | PCM.PYCHPN ---
Psychiatric Progress Note - Psychiatric Progress Note Patient seen today, length of contact: Pt evaluated, case discussed w/ team, chart reviewed Patient Chief Complaint: Behavioral disturbances, now improved Problems Identified/Issues Discussed: No new events. Patient is at her baseline of functioning and no longer requires 1:1 observation. 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 Medication Change: No Medical Record Reviewed: Yes Consults ordered or reviewed: Medicine consult, Neurology consult Mental Status Examination - Cognitive Function Orientation: Person Memory: Impaired Attention: Poor Concentration: Poor Association: Loose Fund of Knowledge: Poor Decription of patient's judgement and insights: Chronic poor I/J due to dementia - Mood Mood: Neutral - Affect Affect: Broad - Speech Speech: Appropriate - Formal Thought Process Formal Thought Process: Loosening of associations Psychotic Thoughts and Behaviors: NO AH/VH - Suicidal Ideation Suicidal Ideation: No - Homicidal Ideation Homicidal Ideation: No Goal/Treatment Plan - Goal/Treatment Plan Need for Continued Stay: Severe functional impairment Progress Toward Problem(s) and Goals/Treatment Plan: Dementia with behavioral disturbances; patient is at her baseline of functioning and is psychiatrically stable for alf placement. -Continue Depakote -Continue Aricept -Continue Megace -Medicine consult -No 1:1 indicated at this time -Case discussed w/ POA -Individual and group therapy -Disposition planning- patient is psychiatrically stable for alf placement Estimated Date of D/C: 02/07/18
[2018-02-04] MEDS: Valproic Acid 250 mg/5 ml UD Cup PO SCH ×3 (08:06→21:05)
[2018-02-04] MEDS: POLYETHYLENE GLYCOL 3350 17 GM/Dose PACKET PO SCH (08:07)
[2018-02-04] MEDS: Cholecalciferol 1,000 INTLU TAB PO SCH (08:07)
[2018-02-04] MEDS: Metoprolol Succinate 25 mg XL Tab PO SCH (08:18)
--- NOTE | 2018-02-04 10:08 | CP.PCM.PN ---
Subjective - Date & Time of Evaluation Date of Evaluation: 02/04/18 Time of Evaluation: 10:06 - Subjective Subjective: no significant changes No nausea or vomiting reported Patient has dementia Objective - Vital Signs/Intake and Output Vital Signs (last 24 hours): Temp Pulse Resp BP Pulse Ox 97.6 F 98 H 20 130/68 99 02/03/18 16:12 02/04/18 08:18 02/03/18 16:12 02/04/18 08:18 01/19/18 02:18 - Medications Medications: Current Medications Acetaminophen (Tylenol 325mg Tab) 650 mg PO Q4 PRN PRN Reason: Pain, moderate (4-7) Last Admin: 02/02/18 21:37 Dose: 650 mg Al Hydrox/Mg Hydrox/Simethicone (Maalox Plus 30 Ml) 30 ml PO Q4 PRN PRN Reason: Dyspepsia Amlodipine Besylate (Norvasc) 10 mg PO DAILY [facility] Last Admin: 02/04/18 08:07 Dose: 10 mg Bismuth Subsalicylate (Pepto-Bismol) 524 mg PO Q4 PRN PRN Reason: Diarrhea Cholecalciferol (Vitamin D) 2,000 intlu PO DAILY [facility] Last Admin: 02/04/18 08:07 Dose: 2,000 intlu Donepezil HCl (Aricept) 10 mg PO HS [facility] Last Admin: 02/03/18 21:19 Dose: 10 mg Folic Acid (Folic Acid) 2 mg PO BID [facility] Last Admin: 02/04/18 08:06 Dose: 2 mg Magnesium Hydroxide (Milk Of Magnesia) 30 ml PO HS PRN PRN Reason: Constipation Megestrol Acetate (Megace) 20 mg PO DAILY [facility] Last Admin: 02/04/18 08:06 Dose: 20 mg Metoprolol Succinate (Toprol Xl) 25 mg PO DAILY [facility] Last Admin: 02/04/18 08:18 Dose: 25 mg Nitrofurantoin Macrocrystals (Macrobid) 100 mg PO BID [facility]; Protocol Stop: 02/07/18 10:31 Last Admin: 02/04/18 08:07 Dose: 100 mg Polyethylene Glycol (Miralax) 17 gm PO DAILY [facility] Last Admin: 02/04/18 08:07 Dose: Not Given Risperidone (Risperdal M-Tab) 0.5 mg PO Q12 PRN PRN Reason: Agitation Last Admin: 02/02/18 21:35 Dose: 0.5 mg Valproate Sodium (Depakene Oral Soln) 250 mg PO BID [facility] Last Admin: 02/04/18 08:06 Dose: 250 mg Valproate Sodium (Depakene Oral Soln) 375 mg PO HS [facility] Last Admin: 02/03/18 21:52 Dose: 375 mg - Labs Labs: 01/27/18 05:45 02/02/18 07:19 - Constitutional Appears: No Acute Distress - Eye Exam Eye Exam: Conjunctival injection - ENT Exam ENT Exam: Mucous Membranes Moist - Neck Exam Neck Exam: absent: Lymphadenopathy - Respiratory Exam Respiratory Exam: NORMAL BREATHING PATTERN. absent: Chest Wall Tenderness - Cardiovascular Exam Cardiovascular Exam: absent: Gallop, Rubs - GI/Abdominal Exam GI & Abdominal Exam: Soft, Normal Bowel Sounds - Extremities Exam Extremities Exam: absent: Calf Tenderness - Back Exam Back Exam: absent: CVA tenderness (L), CVA tenderness (R) - Neurological Exam Neurological Exam: Altered - Skin Skin Exam: absent: Cyanosis Assessment and Plan (1) CRISTINE (acute kidney injury) Assessment & Plan: patient appeared to be recovering from acute kidney injury the last serum creatinine 1.1 CK D stage III which has been stable Hyponatremia improving the latest serum sodium 133 Dementia Hypertension The plan Blood pressure appeared to be controlled on the current medications As per primary team and the psychiatry repeat BMP Status: Acute (2) Altered mental status Status: Acute (3) Dementia with behavioral disturbance Status: Acute (4) HTN (hypertension) Status: Chronic
--- NOTE | 2018-02-04 10:53 | CP.PCM.PCO ---
Physician Communication Note - Physician Communication Note Physician Communication Note: Change in UTI treatment Assessment & Plan - Assessment and Plan (Free Text) Assessment: urine culture results reviewed . Proteus mirabilis positive resistant to N itrofurantoine. Will /jorge healy and start Ciprofloxacin 250 mg pO BID for 7 days
[2018-02-04] MEDS: Risperidone M tab 0.5MG PO PRN ×2 (11:34→23:37)
--- NOTE | 2018-02-05 09:02 | PCM.PYCHPN ---
Psychiatric Progress Note - Psychiatric Progress Note Patient seen today, length of contact: Pt evaluated, case discussed w/ team, chart reviewed Patient Chief Complaint: Behavioral disturbances, now improved Problems Identified/Issues Discussed: Patient started on Cipro for UTI. Patient continues to have chronic cognitive deficits. Patient is at her baseline of functioning and no longer requires 1:1 observation. Patient will need senior living placement. Medication Change: No Medical Record Reviewed: Yes Consults ordered or reviewed: Medicine consult, Neurology consult Mental Status Examination - Cognitive Function Orientation: Person Memory: Impaired Attention: Poor Concentration: Poor Association: Loose Fund of Knowledge: Poor Decription of patient's judgement and insights: Chronic poor I/J due to dementia - Mood Mood: Neutral - Affect Affect: Broad - Speech Speech: Appropriate - Formal Thought Process Formal Thought Process: Loosening of associations Psychotic Thoughts and Behaviors: NO AH/VH - Suicidal Ideation Suicidal Ideation: No - Homicidal Ideation Homicidal Ideation: No Goal/Treatment Plan - Goal/Treatment Plan Need for Continued Stay: Severe functional impairment Progress Toward Problem(s) and Goals/Treatment Plan: Dementia with behavioral disturbances; patient is at her baseline of functioning and is psychiatrically stable for manager terminal placement. -Continue Depakote -Continue Aricept -Continue Megace -Cipro for UTI -Medicine consult -No 1:1 indicated at this time -Case discussed w/ POA -Individual and group therapy -Disposition planning- patient is psychiatrically stable for manager terminal placement Estimated Date of D/C: 02/07/18
[2018-02-05] MEDS: Valproic Acid 250 mg/5 ml UD Cup PO SCH ×3 (09:34→21:19)
[2018-02-05] MEDS: Cholecalciferol 1,000 INTLU TAB PO SCH (09:34)
[2018-02-05] MEDS: Metoprolol Succinate 25 mg XL Tab PO SCH (09:35)
[2018-02-05] MEDS: POLYETHYLENE GLYCOL 3350 17 GM/Dose PACKET PO SCH (09:38)
--- NOTE | 2018-02-06 08:12 | PCM.PYCHPN ---
Psychiatric Progress Note - Psychiatric Progress Note Patient seen today, length of contact: Pt evaluated, case discussed w/ team, chart reviewed Patient Chief Complaint: Behavioral disturbances, now improved Problems Identified/Issues Discussed: No new events. Patient continues to have chronic cognitive deficits. Patient is at her baseline of functioning and no longer requires 1:1 observation. 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 Medication Change: No Medical Record Reviewed: Yes Consults ordered or reviewed: Medicine consult, Neurology consult Mental Status Examination - Cognitive Function Orientation: Person Memory: Impaired Attention: Poor Concentration: Poor Association: Loose Fund of Knowledge: Poor Decription of patient's judgement and insights: Chronic poor I/J due to dementia - Mood Mood: Neutral - Affect Affect: Broad - Speech Speech: Appropriate - Formal Thought Process Formal Thought Process: Loosening of associations Psychotic Thoughts and Behaviors: NO AH/VH - Suicidal Ideation Suicidal Ideation: No - Homicidal Ideation Homicidal Ideation: No Goal/Treatment Plan - Goal/Treatment Plan Need for Continued Stay: Severe functional impairment Progress Toward Problem(s) and Goals/Treatment Plan: Dementia with behavioral disturbances; patient is at her baseline of functioning and is psychiatrically stable for penitentiary placement. -Continue Depakote -Continue Aricept -Continue Megace -Cipro for UTI -Medicine consult -No 1:1 indicated at this time -Case discussed w/ POA -Individual and group therapy -Disposition planning- patient is psychiatrically stable for terminal worker placement Estimated Date of D/C: 02/07/18
[2018-02-06] MEDS: Valproic Acid 250 mg/5 ml UD Cup PO SCH (08:56)
[2018-02-06] MEDS: Metoprolol Succinate 25 mg XL Tab PO SCH (08:57)
[2018-02-06] MEDS: Cholecalciferol 1,000 INTLU TAB PO SCH (08:57)
[2018-02-06] MEDS: POLYETHYLENE GLYCOL 3350 17 GM/Dose PACKET PO SCH (17:13)
[2018-02-06] MEDS: Lactobacillus Acidophilus 500 MU Cap PO SCH (23:36)
[2018-02-07] MEDS: Valproic Acid 250 mg/5 ml UD Cup PO SCH ×3 (02:23→21:08)
[2018-02-07] MEDS: Lactobacillus Acidophilus 500 MU Cap PO SCH ×2 (08:14→18:04)
[2018-02-07] MEDS: Cholecalciferol 1,000 INTLU TAB PO SCH (08:24)
[2018-02-07] MEDS: Metoprolol Succinate 25 mg XL Tab PO SCH (08:26)
--- NOTE | 2018-02-07 08:33 | PCM.PYCHPN ---
Psychiatric Progress Note - Psychiatric Progress Note Patient seen today, length of contact: Pt evaluated, case discussed w/ team, chart reviewed Patient Chief Complaint: Behavioral disturbances, now improved Problems Identified/Issues Discussed: No new events. Patient continues to have chronic cognitive deficits. Patient is at her baseline of functioning. Patient will need remote computer terminal operator placement. Medication Change: No Medical Record Reviewed: Yes Consults ordered or reviewed: Medicine consult, Neurology consult Mental Status Examination - Cognitive Function Orientation: Person Memory: Impaired Attention: Poor Concentration: Poor Association: Loose Fund of Knowledge: Poor Decription of patient's judgement and insights: Chronic poor I/J due to dementia - Mood Mood: Neutral - Affect Affect: Broad - Speech Speech: Appropriate - Formal Thought Process Formal Thought Process: Loosening of associations Psychotic Thoughts and Behaviors: NO AH/VH - Suicidal Ideation Suicidal Ideation: No - Homicidal Ideation Homicidal Ideation: No Goal/Treatment Plan - Goal/Treatment Plan Need for Continued Stay: Severe functional impairment Progress Toward Problem(s) and Goals/Treatment Plan: Dementia with behavioral disturbances; patient is at her baseline of functioning and is psychiatrically stable for longterm placement. -Continue Depakote -Continue Aricept -Stop Megace, patient has been eating well. -Cipro for UTI -Medicine consult -Case discussed w/ POA -Individual and group therapy -Disposition planning- patient is psychiatrically stable for remote computer terminal operator placement Estimated Date of D/C: 02/10/18
--- NOTE | 2018-02-07 11:58 | CP.PCM.PN ---
Subjective - Date & Time of Evaluation Date of Evaluation: 02/07/18 Time of Evaluation: 11:55 - Subjective Subjective: patient showed no significant changes in her mental status Objective - Vital Signs/Intake and Output Vital Signs (last 24 hours): Temp Pulse Resp BP Pulse Ox 97 F L 112 H 20 138/71 99 02/06/18 16:33 02/07/18 08:27 02/06/18 16:33 02/07/18 08:27 01/19/18 02:18 - Medications Medications: Current Medications Acetaminophen (Tylenol 325mg Tab) 650 mg PO Q4 PRN PRN Reason: Pain, moderate (4-7) Last Admin: 02/06/18 23:36 Dose: 650 mg Al Hydrox/Mg Hydrox/Simethicone (Maalox Plus 30 Ml) 30 ml PO Q4 PRN PRN Reason: Dyspepsia Amlodipine Besylate (Norvasc) 10 mg PO DAILY [facility] Last Admin: 02/07/18 08:27 Dose: 10 mg Bismuth Subsalicylate (Pepto-Bismol) 524 mg PO Q4 PRN PRN Reason: Diarrhea Last Admin: 02/06/18 18:56 Dose: 524 mg Cholecalciferol (Vitamin D) 2,000 intlu PO DAILY [facility] Last Admin: 02/07/18 08:24 Dose: 2,000 intlu Ciprofloxacin (Cipro) 250 mg PO Q12 [facility]; Protocol Last Admin: 02/07/18 08:27 Dose: 250 mg Donepezil HCl (Aricept) 10 mg PO HS [facility] Last Admin: 02/07/18 02:20 Dose: Not Given Folic Acid (Folic Acid) 2 mg PO BID [facility] Last Admin: 02/07/18 08:27 Dose: 2 mg Lactobacillus Acidophilus (Bacid Acidophilus) 1 cap PO BID [facility] Last Admin: 02/07/18 08:14 Dose: 1 cap Lorazepam (Ativan) 0.5 mg PO Q8 PRN PRN Reason: Agitation Lorazepam (Ativan) 0.5 mg IM Q8 PRN PRN Reason: Agitation Magnesium Hydroxide (Milk Of Magnesia) 30 ml PO HS PRN PRN Reason: Constipation Metoprolol Succinate (Toprol Xl) 25 mg PO DAILY [facility] Last Admin: 02/07/18 08:26 Dose: 25 mg Polyethylene Glycol (Miralax) 17 gm PO DAILY [facility] Last Admin: 02/06/18 17:13 Dose: Not Given Risperidone (Risperdal M-Tab) 0.5 mg PO Q12 PRN PRN Reason: Agitation Last Admin: 02/04/18 23:37 Dose: 0.5 mg Valproate Sodium (Depakene Oral Soln) 250 mg PO Q12 [facility] Last Admin: 02/07/18 08:24 Dose: 250 mg - Labs Labs: 01/27/18 05:45 02/02/18 07:19 - Constitutional Appears: No Acute Distress - Eye Exam Eye Exam: Conjunctival injection - ENT Exam ENT Exam: Mucous Membranes Moist - Neck Exam Neck Exam: absent: Lymphadenopathy - Respiratory Exam Respiratory Exam: NORMAL BREATHING PATTERN. absent: Chest Wall Tenderness - Cardiovascular Exam Cardiovascular Exam: absent: Gallop, JVD, Rubs - GI/Abdominal Exam GI & Abdominal Exam: Soft, Normal Bowel Sounds - Extremities Exam Extremities Exam: absent: Calf Tenderness - Back Exam Back Exam: CVA tenderness (L). absent: CVA tenderness (R) - Neurological Exam Neurological Exam: Awake - Skin Skin Exam: absent: Cyanosis Assessment and Plan (1) CRISTINE (acute kidney injury) Assessment & Plan: acute kidney injury patient recovered Hyponatremia noted serum sodium was normal initially and then came down as low as 130 and the latest 133 Rule out SIADH caused by multiple psych medication as noted the plan Spot urine for sodium and osmolality Monitor serum sodium we will follow-up the spot urine for the electrolyte as above and decide about the need of Samsca ? Status: Acute (2) Altered mental status Status: Acute (3) Dementia with behavioral disturbance Status: Acute (4) HTN (hypertension) Status: Chronic
[2018-02-07] MEDS: Risperidone M tab 0.5MG PO PRN (21:33)
[2018-02-08] MEDS: Metoprolol Succinate 25 mg XL Tab PO SCH (08:52)
[2018-02-08] MEDS: Cholecalciferol 1,000 INTLU TAB PO SCH (08:52)
[2018-02-08] MEDS: Valproic Acid 250 mg/5 ml UD Cup PO SCH ×2 (08:53→22:43)
[2018-02-08] MEDS: Lactobacillus Acidophilus 500 MU Cap PO SCH ×2 (08:54→17:18)
--- NOTE | 2018-02-08 10:22 | CP.PCM.PN ---
Subjective - Date & Time of Evaluation Date of Evaluation: 02/08/18 Time of Evaluation: 10:20 - Subjective Subjective: NEPHROLOGY seen and examined no complaints pe: vs as below gen: nad sclera: anicteric op: clear poor dentition neck: supple cv: +s1+s2 lungs: cta b/l abd: soft nt nd no organomelay ext: no edema neuro: opens eyse to voice psych: flat skin no rash imp: hyponatremia/ jose / dementia /vit d defic plan: recc check bmp to see if na still stable/and or still improving jose resolved on last check psych/dementia per psych Objective - Vital Signs/Intake and Output Vital Signs (last 24 hours): Temp Pulse Resp BP Pulse Ox 99.2 F 102 H 20 129/97 H 99 02/08/18 06:00 02/08/18 08:52 02/08/18 06:00 02/08/18 08:52 01/19/18 02:18 - Medications Medications: Current Medications Acetaminophen (Tylenol 325mg Tab) 650 mg PO Q4 PRN PRN Reason: Pain, moderate (4-7) Last Admin: 02/07/18 21:13 Dose: 650 mg Al Hydrox/Mg Hydrox/Simethicone (Maalox Plus 30 Ml) 30 ml PO Q4 PRN PRN Reason: Dyspepsia Amlodipine Besylate (Norvasc) 10 mg PO DAILY [facility] Last Admin: 02/08/18 08:51 Dose: 10 mg Bismuth Subsalicylate (Pepto-Bismol) 524 mg PO Q4 PRN PRN Reason: Diarrhea Last Admin: 02/06/18 18:56 Dose: 524 mg Cholecalciferol (Vitamin D) 2,000 intlu PO DAILY [facility] Last Admin: 02/08/18 08:52 Dose: 2,000 intlu Ciprofloxacin (Cipro) 250 mg PO Q12 [facility]; Protocol Last Admin: 02/08/18 08:53 Dose: 250 mg Donepezil HCl (Aricept) 10 mg PO HS [facility] Last Admin: 02/07/18 21:08 Dose: 10 mg Folic Acid (Folic Acid) 2 mg PO BID [facility] Last Admin: 02/08/18 08:53 Dose: 2 mg Lactobacillus Acidophilus (Bacid Acidophilus) 1 cap PO BID [facility] Last Admin: 02/08/18 08:54 Dose: 1 cap Lorazepam (Ativan) 0.5 mg PO Q8 PRN PRN Reason: Agitation Lorazepam (Ativan) 0.5 mg IM Q8 PRN PRN Reason: Agitation Magnesium Hydroxide (Milk Of Magnesia) 30 ml PO HS PRN PRN Reason: Constipation Metoprolol Succinate (Toprol Xl) 25 mg PO DAILY [facility] Last Admin: 02/08/18 08:52 Dose: 25 mg Polyethylene Glycol (Miralax) 17 gm PO DAILY [facility] Last Admin: 02/06/18 17:13 Dose: Not Given Risperidone (Risperdal M-Tab) 0.5 mg PO Q12 PRN PRN Reason: Agitation Last Admin: 02/07/18 21:33 Dose: 0.5 mg Valproate Sodium (Depakene Oral Soln) 250 mg PO Q12 [facility] Last Admin: 02/08/18 08:53 Dose: 250 mg - Labs Labs: 01/27/18 05:45 02/02/18 07:19
[2018-02-08] MEDS: Risperidone M tab 0.5MG PO PRN ×2 (11:34→22:46)
--- NOTE | 2018-02-08 19:00 | PCM.PYCHPN ---
Psychiatric Progress Note - Psychiatric Progress Note Patient seen today, length of contact: Pt evaluated, case discussed w/ team, chart reviewed Patient Chief Complaint: pt was transferred from [facility] due non availability of bed pt was transferred from [facility] 2nd to changes in behavior. Medication Change: No Medical Record Reviewed: Yes Mental Status Examination - Cognitive Function Orientation: Person Memory: Impaired Attention: Poor Concentration: Poor Association: Loose Fund of Knowledge: Poor - Mood Mood: Neutral - Affect Affect: Broad - Speech Speech: Appropriate - Formal Thought Process Formal Thought Process: Loosening of associations - Suicidal Ideation Suicidal Ideation: No - Homicidal Ideation Homicidal Ideation: No Goal/Treatment Plan - Goal/Treatment Plan Need for Continued Stay: Severe functional impairment Progress Toward Problem(s) and Goals/Treatment Plan: inpt admission per attending vital signs and clinical observation per protocol and per clinical status prn use of antipsychotics should be judiciously used prn use of lower dose lorazepam previous medications can be resumed pt status (assess with hs seroquel possible sedation) obtain ekg check qtc in light of antipsychotics administered access to kazakh speaking staff prn discharge planning in progress Estimated Date of D/C: 02/10/18
[2018-02-09] MEDS: Valproic Acid 250 mg/5 ml UD Cup PO SCH ×2 (08:17→21:33)
[2018-02-09] MEDS: Cholecalciferol 1,000 INTLU TAB PO SCH (08:17)
[2018-02-09] MEDS: Metoprolol Succinate 25 mg XL Tab PO SCH (08:25)
[2018-02-09] MEDS: Lactobacillus Acidophilus 500 MU Cap PO SCH ×2 (11:00→17:34)
[2018-02-09 13:53] LABS: ALB/GLOB RATIO 0.8 (1.0-2.1); ALBUMIN 3.2 g/dL (3.5-5.0); ALT/SGPT 24 U/L (9-52); AST/SGOT 25 U/L (14-36); BLOOD UREA NITROGEN 15 mg/dl (7-17); CALCIUM 9.7 mg/dL (8.4-10.2); GFR NON-AFRICAN AMERICAN > 60
[2018-02-09 15:36] VITALS: TEMP 97.7
--- NOTE | 2018-02-09 16:39 | PCM.PYCHPN ---
Psychiatric Progress Note - Psychiatric Progress Note Patient seen today, length of contact: Pt evaluated, case discussed w/ team, chart reviewed Patient Chief Complaint: pt was transferred from [facility] due non availability of bed pt was transferred from [facility] 2nd to changes in behavior. Problems Identified/Issues Discussed: alteration in cognition alteration in bowel movements alteration in self care excess thirst Medical Problems: per chart hx impaired renal function Diagnostic Results: per psychiatry per medicine per nursing per social work instructor per recreational therapy DSM 5 Symptoms Update: alteration in cognition Medication Change: No Medical Record Reviewed: Yes Consults ordered or reviewed: hospitalist pt seen by dr calhoun Mental Status Examination - Cognitive Function Orientation: Person Memory: Impaired Attention: Poor Concentration: Poor Association: Loose Fund of Knowledge: Poor Decription of patient's judgement and insights: impaired - Mood Mood: Neutral - Affect Affect: Broad - Speech Speech: Appropriate - Formal Thought Process Formal Thought Process: Loosening of associations - Suicidal Ideation Suicidal Ideation: No - Homicidal Ideation Homicidal Ideation: No Goal/Treatment Plan - Goal/Treatment Plan Need for Continued Stay: Severe functional impairment Progress Toward Problem(s) and Goals/Treatment Plan: inpt milieu vital signs and clinical observation per protocol and per clinical status prn use of antipsychotics should be judiciously used prn use of lower dose lorazepam previous medications can be resumed pt status (assess with hs seroquel possible sedation) obtain ekg check qtc in light of antipsychotics administered access to japanese speaking staff prn discharge planning in progress Estimated Date of D/C: 02/10/18 - Smoking Cessation Smoking Cessation Initiated: No Reason for not providing: pt defers
[2018-02-09] MEDS ORDERED: Sod Polystyrene Sulf 15 gm/60 ml Susp PO ONE (19:00)
[2018-02-10 06:58] LABS: ALB/GLOB RATIO 0.8 (1.0-2.1); ALBUMIN 3.5 g/dL (3.5-5.0); ALT/SGPT 21 U/L (9-52); AST/SGOT 28 U/L (14-36); BLOOD UREA NITROGEN 15 mg/dl (7-17); CALCIUM 9.8 mg/dL (8.4-10.2); GFR NON-AFRICAN AMERICAN > 60
--- NOTE | 2018-02-10 07:59 | PCM.PYCHDC ---
Mental Status Examination - Mental Status Examination Orientation: Person Memory: Impaired Mood: Neutral Affect: Constricted Speech: Slurred Attention: Poor Concentration: Poor Association: Loose Fund of Knowledge: Poor Formal Thought Process: Loosening of associations Description of patient's judgement and insight: Chronic poor I/J due to dementia Psychotic Thoughts and Behaviors: NO AH/VH Suicidal Ideation: No Current Homicidal Ideation?: No Discharge Summary - Discharge Note Reason for Hospitalization: 87 yo female with history of dementia, admitted with worsening confusion and behavioral disturbances. Laboratory Data: Abnormal Lab Results 02/09/18 02/10/18 13:05 05:45 Sodium 138 142 Potassium 5.5 H 4.1 Chloride 108 H 105 Carbon Dioxide 24 28 Anion Gap 12 13 BUN 15 15 Creatinine 0.8 0.8 Est GFR ( Amer) > 60 > 60 Est GFR (Non-Af Amer) > 60 > 60 Random Glucose 136 H 114 H Calcium 9.7 9.8 Total Bilirubin 0.3 0.3 AST 25 28 ALT 24 21 Alkaline Phosphatase 61 71 Total Protein 7.0 7.7 Albumin 3.2 L 3.5 Globulin 3.9 4.2 H Albumin/Globulin Ratio 0.8 L 0.8 L VPA 33.1 on 01/27/18 Consultations:: List each consultation separately and include: 1. Reason for request. 2. Findings. 3. Follow-up Consultations: Medicine consult, Neurology consult Summary of Hospital Course include:: 1. Description of specific treatment plan utilized for patients during their course of treatmen. 2. Summarize the time- course for resolution of acute symptoms and/or regressed behaviors. 3. Describe issues identified and worked on during hospitalization. 4. Describe medication utilized. 5. Describe medical problems identified and treated. 6. Reassessment of suicide risk Summary of Hospital Course: Patient was admitted to the psychiatry unit. Case discussed w/ patient's family (POA). Patient was stabilized on Depakote 250 mg PO Q12 and Aricept 10 mg PO HS. She is currently at her baseline of functioning and is psychiatrically stable for discharge. - Diagnosis (1) Dementia with behavioral disturbance Current Visit: Yes Status: Chronic - Final Diagnosis (DSM 5) Condition upon Discharge: STABLE DSM 5: Dementia with behavioral disturbance Disposition: TRANSF TO SNF Follow-up Treatment Plan: Dementia with behavioral disturbances; patient is at her baseline of functioning and is psychiatrically stable for discharge. -Continue Depakote 250 mg PO Q12 hr -Continue Aricept 10 mg PO HS -Patient completed treatment for UTI with Cipro -Medicine consult -Case discussed w/ POA -Individual and group therapy -Discharge to subacute rehab - Smoking Cessation Smoking Cessation Medication prescribed: No Reason for not providing: Not indicated - Antipsychotic Medications Pt discharged on 2 or more routine antipsychotic medications: No
[2018-02-10] MEDS: Cholecalciferol 1,000 INTLU TAB PO SCH (08:35)
[2018-02-10] MEDS: Valproic Acid 250 mg/5 ml UD Cup PO SCH (08:35)
[2018-02-10] MEDS: Metoprolol Succinate 25 mg XL Tab PO SCH (08:37)
[2018-02-10] MEDS: Lactobacillus Acidophilus 500 MU Cap PO SCH (08:38)
[2018-02-10 08:39] VITALS: BP 129/84; PULSE 93
[2018-02-10 13:18] VITALS: RESP 20
--- NOTE | 2018-02-10 15:41 | PCM.BM ---
Treatment Plan Problems - Problems identified on initial assessmt Problem 1 Date Initiated: 01/19/18 Time Initiated: 04:51 Agitated/Aggressive Behavior Date Initiated: 01/19/18 Time Initiated: 04:51 Assessment reference: NA Status: Active Ineffective Impulse Control Date Initiated: 01/19/18 Time Initiated: 04:53 Assessment reference: NA Status: Active Treatment assets and liabiliti Patient Assests: good support system Patient Liabilities: medical problems, imparied memory, language/speech - Milieu Protocol Maintain good personal hygiene: every shift Encourage regular showers, every shift Remind patient to perform daily oral care, every shift Assist patient to perform ADL's Conduct patient checks and document Observation sheet: 1:1 Maintain personal safety: every shift Educate patient to report safety concerns to staff, every shift Monitor environment for contraband/sharps Medication safety: Monitor for expected outcome, potential side effects: every shift, Assess barriers to learning: every shift, Assess readiness for medication education: every shift Milieu Narrative: Dementia with behavioral disturbances; patient is at her baseline of functioning and is psychiatrically stable for discharge. -Continue Depakote 250 mg PO Q12 hr -Continue Aricept 10 mg PO HS -Patient completed treatment for UTI with Cipro -Medicine consult -Case discussed w/ POA -Individual and group therapy -Discharge to subacute rehab Family Contact Family involvement: Family/SO is involved Family contact: Other Family contact name: Ana Rosa RODRIGUEZ on file Family contacted how many times per week?: 2 - Outside Agency [facility] involvment: Information-sharing Agency contact name: [facility] Agency contact number: [phone] - Goals for Treatment Patient goals for treatment: Pt to be encouraged to attend activity and clinical groups 3-5x per week to identify at least 2 contributing factors to increased agitation, irritability, and aggression. Psycho-education to be provided to patient/family regarding benefits of medications and treatment adherence. Pt to be encouraged to participate in group milieu to develop effective coping skills to reduce aggression and reduce psychiatric hospitalizations. Coordinate discharge resource needs by providing referral for psychiatric treatment follow up in the community. Discharge/Continuing Care - Education Needs Education Needs: Family Medication, Family Diagnosis/Disease Process, Family Coping Skills, Family Placement options, Family Community resources, Family Health Practices/Safety, Family Personal Hygiene/Grooming, Family Aftercare Safety Plan - Discharge Discharge Criteria: Tolerates medication w/o severe side effects, Free of agitation, Normal sleep pattern, Ability to care for self, Reduction of target symptoms Discharge to:: [facility] (Pt is clinically accepted to [place] [facility] for ALEN with transition to LTC. ) - Additional Comments 01/20/18 15:51 Pt unable to attend team meeting. Pt observed to be resting. Pt is presently on 1:1 due to safety. Reason for admission reviewed and discussed. Pt's medical and social issues reviewed. Pt's medications discussed. Tx mario reviewed and discussed. SW and attending MD to contact pt's family who is POA for collateral information. SW to continue to follow case. - Treatment Team Participation Patient/Family/SO Statement: Dementia with behavioral disturbances; patient is at her baseline of functioning and is psychiatrically stable for discharge. -Continue Depakote 250 mg PO Q12 hr -Continue Aricept 10 mg PO HS -Patient completed treatment for UTI with Cipro -Medicine consult -Case discussed w/ POA -Individual and group therapy -Discharge to subacute rehab Discussed with Family/SO: No Was Patient/Family/SO present at Treatment Team Meeting: Yes Treatment Plan Review Patient participation: No Family/SO/Caregiver participation: No Additional Comments: Pt reviewed and discussed in team meeting. Pt's progress and bx discussed at length. Pt continues to exhibit periods of irritability, agitation, screaming and yelling. Pt difficult to re-direct due to severe cognitive impairment. Pt's medications reviewed and discussed. Pt is clinically and financially accepted at [facility]3]. 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 Pt's family notified of same. - Problem Problem 1 Time Initiated: 04:51 Agitated/Aggressive Behavior Date Initiated: 01/19/18 Time Initiated: 04:51 Progress toward outcomes: improved (Pt is less agitated and irritable. Pt has periods of screaming and yelling.) Ineffective Impulse Control Date Initiated: 01/19/18 Time Initiated: 04:53 Progress toward outcomes: unchanged - Discharge / Continuing Care Discharge to:: [facility] (Pt was clinical and financially accepted at [facility] in [place]) Behavioral Health Services: Other (Medication management) Health Needs: Follow up care/test, Doctor appointments, Special equipment, Nutritional, Medications/Rx, Educational, Recreational/Social
== END 2018-02-10 13:30 | DRG 57 ==
LOC: H.ER 02:08 → H.STEP 02:53
PROVIDERS: ADMIT Psychiatry & Neurology Psychiatry; ATTEND Psychiatry & Neurology Psychiatry
PROC: GZ51ZZZ Individual Psychotherapy, Behavioral (ICD-10-PCS; principal; 2018-01-19)
PROC: 3E02340 Introduction of Influenza Vaccine into Muscle, Percutaneous Approach (ICD-10-PCS; 2018-01-19)
PROC: 3E0234Z Introduction of Serum, Toxoid and Vaccine into Muscle, Percutaneous Approach (ICD-10-PCS; 2018-01-19)
DX: G30.9 Alzheimer's disease, unspecified (principal); F02.81 Dementia in other diseases classified elsewhere, unspecified severity, with behavioral disturbance; N17.9 Acute kidney failure, unspecified; N39.0 Urinary tract infection, site not specified; E87.1 Hypo-osmolality and hyponatremia; I10 Essential (primary) hypertension; R63.1 Polydipsia; Z79.899 Other long term (current) drug therapy; Z85.41 Personal history of malignant neoplasm of cervix uteri; F32.9 Major depressive disorder, single episode, unspecified; F41.9 Anxiety disorder, unspecified; E55.9 Vitamin D deficiency, unspecified; Z23 Encounter for immunization